=== PATIENT | female | born 2005 | race Caucasian/White ===

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

== ENCOUNTER 2024-03-28 09:05 | Emergency (ER) | payer OTHER, SELFPAY ==
[2024-03-28 09:17] VITALS: BP 115/70; PULSE 73; RESP 16; TEMP 36.7; O2SAT 100
[2024-03-28 09:39] LABS: EDSTREPNEGPOS1 Negative (Negative)
--- NOTE | 2024-03-28 10:03 | ED.URI ---
HPI - URI/Sore Throat General Chief Complaint: Upper Respiratory Infection Stated Complaint: Sore Throat Time Seen by Provider: 03/28/24 09:30 Source: patient Mode of arrival: ambulatory Limitations: no limitations History of Present Illness HPI Narrative: 19 yo F presents with c/o sore throat for 2 days, worse to L side. Afebrile. hx of tonisillar abscess but states doesn't feel like it did when she had abscess . Reports hx of strep with negative strep tests.Denies difficulty swallowing. All systems reviewed and negative except as noted above. Related Data Allergies Allergy/AdvReac Type Severity Reaction Status Date / Time No Known Allergies Allergy Verified 03/14/22 09:56 Review of Systems Review of Systems: CONSTITUTIONAL: Denies fever, chills, or sweats. EYES: Denies visual changes, redness, or discharge. ENT: Denies rhinorrhea, congestion . Reports sore throat. Denies otalgia. CARDIOVASCULAR: Denies chest pain, palpitations, or edema. RESPIRATORY: Denies cough or dyspnea. GASTROINTESTINAL: Denies abdominal pain, nausea, vomiting, or diarrhea. GENITOURINARY: Denies dysuria or hematuria. SKIN: Denies rash or itching. MUSCULOSKELETAL: Denies back pain, joint pain, or myalgia. NEUROLOGIC: Denies headache, numbness, or weakness. PSYCHIATRIC: Denies anxiety or depression. All other systems reviewed are negative, except as documented in HPI. PMFSH Past Medical History Medical History No active medical problems Family History Family History Grandparent Hypertension Social History Social History Smoking status: Never smoker Alcohol intake: never Gender identity (if verbalized by the patient): Female Comments At time of signature, agree with nursing past medical, surgical, social and family history. There is no relevant family history pertinent to the presenting complaint. Exam Narrative: GENERAL: This is a well-nourished, well-developed patient, in no apparent distress. HEAD: normocephalic, atraumatic. EYES: PERRL. Sclera clear/white. Vision is grossly intact. EARS: External ears normal, auditory canals clear and without drainage, TMs normal without perforation. Hearing grossly intact. NOSE: External nose normal with no obvious nasal discharge, nares without redness, no rhinorrhea. THROAT: Mucous membranes moist, erythematous, tonsils 2+ bilaterally. No exudates or tonsil stones noted. no unilateral tonsillar swelling concerning for tonsillar abscess. NECK: Neck supple, non-tender with Anterior cervical lymphadenopathy bilaterally. no masses or thyromegaly. CARDIOVASCULAR: Regular rate and rhythm without murmurs, gallops, or rubs. RESPIRATORY: Clear to auscultation. Breath sounds equal bilaterally. No wheezes, rales, or rhonchi. SKIN: warm, Dry, intact with no suspicious lesions or rash, good texture and turgor. NEURO: awake, alert, and oriented to person, place and time. There were no obvious focal neurologic abnormalities. EXTREMITIES: No joint tenderness, effusion, or edema noted. Course Course Level of Care: Express Care Visit Vital Signs Vital signs: Vital Signs Temperature 36.7 C 03/28/24 09:17 Pulse Rate 73 03/28/24 09:17 Respiratory Rate 16 03/28/24 09:17 Blood Pressure 115/70 03/28/24 09:17 Pulse Oximetry 100 03/28/24 09:17 Oxygen Delivery Room Air 03/28/24 09:17 Temperature 36.7 C 03/28/24 09:17 Pulse Rate 73 03/28/24 09:17 Respiratory Rate 16 03/28/24 09:17 Blood Pressure 115/70 03/28/24 09:17 Pulse Oximetry 100 03/28/24 09:17 Oxygen Delivery Room Air 03/28/24 09:17 reviewed MDM - URI/Sore Throat MDM Narrative Medical decision making narrative: mono and strep test negative. Strep culture ordered. Will treat patient with antibiotic due to exam findings and patient's symptoms. Patient well-appearing, nontoxic. Patient is aware of diagnosis, understands and agrees to treatment plan. Anticipatory guidance given. Patient agrees to follow-up as directed and is aware of reasons to seek care at the emergency department. Portions of this record may have been created with voice recognition software Lab Data Labs: Lab Results 03/28/24 Range/Units 09:37 POC Grp A Strep Screen Negative (Negative) Discharge Plan Discharge Clinical Impression: Acute tonsillitis Patient Disposition: Home, Self-Care Condition: Stable Instructions: Antibiotic Form, Tonsillitis (ED) Additional Instructions: Your strep and mono test were negative today. A strep culture was ordered and results will take 24-48 hours. I am prescribing an antibiotic today due to your symptoms and exam findings. Take antibiotic as prescribed until gone. Change toothbrush after taking antibiotic for 24 hours. Take ibuprofen or Tylenol every 6-8 hours as needed for pain and fever. Follow-up with your primary care physician if symptoms are not improving. For any worsening of symptoms go to the ER. Patient Language: [place] Prescriptions: New amoxicillin 875 mg tablet 875 mg PO Q12H 10 Days Qty: 20 0RF methylprednisolone [Medrol (Michael)] 4 mg tablets,dose pack See Rx Instructions PO .COMPLEX Qty: 21 0RF Rx Instructions: orally per package directions Follow-up/Referrals: PHYSICIAN NOT ON STAFF,NONSTAFF [Primary Care Provider] - Time of Disposition: 10:00
[2024-03-28 10:05] LABS: EDMONONEGPOS Negative (Negative)
--- OUTSIDE RECORDS SUMMARY | 2024-04-04 08:33 | XMS_ITS | Encounter Summary ---
Author Organization [facility] Address [address] [facility] [place] [address] Care Team Providers Care Rehab/Pre Vocational Counselor Name Role Phone Vernell Espinoza MD Unavailable Elpidio Zarate MD Primary Care Provider [phone] Reason for Visit * Reason Comments Evaluation tonsil abcess Encounter Details Date Type Department Care Team (Latest Contact Info) Description 09/15/2018 2:13 PM CDT - 09/15/2018 11:59 PM CDT Hospital Encounter [facility] Pediatrics - ENT [address] [facility] [place] [address] Dinah Mann MD Discharge Disposition: Home or Self Care Social History Tobacco Use Types Packs/Day Years Used Date Smoking Tobacco: Never Smokeless Tobacco: Never Sex and Gender Information Value Date Recorded Sex Assigned at Not on file Gender Identity Not on file Sexual Orientation Not on file documented as of this encounter Last Filed Vital Signs Vital Sign Reading Time Taken Comments Blood Pressure - - Pulse - - Temperature - - Respiratory Rate - - Oxygen Saturation - - Inhaled Oxygen Concentration - - Weight 57.4 kg (126 lb 8.7 oz) 09/15/2018 2:18 P M CDT Height 160 cm (5' 2.99 ) 09/15/2018 2:18 PM CDT Body Mass Index 22.42 09/15/2018 2:18 PM CDT Body Mass Index Percentile 72.91% 09/15/2018 2:1 8 PM CDT Growth Chart: [facility] (Girls, 2- 20 Years) documented in this encounter Medications at Time of Discharge Medication Sig Dispensed Refills Start Date End Date amoxicillin-clavulanate (AUGMENTIN) 875-125 MG tablet 09/08/2018 fluticasone propionate (FLONASE) 50 MCG/ACT nasal spray Elida 2 sprays into each nostril once daily for 30 days 1 bottles 5 09/15/2018 10/15/2018 documented as of this encounter Progress Notes * Dinah Mann MD - 09/15/2018 2:24 PM CDT ENT Clinic Note 09/15/2018 Patient name: Aviva Alvarez Date of : 2005 Chief Complaint Patient presents with ??? Evaluation tonsil abcess History of Present Illness: Aviva is a 13 year old 7 month old female here with her mother referred for evaluation of her tonsils. She developed left throat pain approximately 1 week ago and had a peritonsillar abscess drained at [facility]. Two of attempts at drainage were reportedly required. She was treated with amoxicillin postoperatively, her pain has resolved and she is feeling at her baseline. This was her first peritonsillar abscess. She had recurrent streptococcal tonsillitis several years ago but none recently. There is no family history of bleeding disorders. She does snore without witnessed sleep apnea. Another concern today is regarding her nasal airway. She has a hyponasal voice for the past 2 years. There is a strong family history of nasal allergies and sinus problems. She has mild chronic bilateral nasal obstruction. Allergies: Review of patient's allergies indicates no known allergies. Medications: Current Outpatient Prescriptions: ??? amoxicillin-clavulanate (AUGMENTIN) 875-125 MG tablet, , Disp: , Rfl: Past Medical History: Diagnosis Date ??? Acute serous otitis media 06/03/08 ??? Congenital preauricular sinus or fistula ??? FTND (full term normal delivery) 37 weeks, normal delivery, 4lbs 14oz ??? Rash 08/31/04 ??? Routine or child health check 07/21/04,04/28/04,01/19/05,01/31/06,03/03/07,06/03/08 ??? Streptococcal sore throat 10/20/07 History: 37 week was normal. Hospitalizations: No [place] hearing screen: passed Surgical History: Past Surgical History: Procedure Laterality Date ? ? VA EXCISION OF BENIGN LESION > 1.25 CM preauricular fistula removal age 1-2 Immunizations: are up to date Growth and development: Age appropriate: yes Receiving additional services: no Family history: Hearing loss: No. Surgical or anesthesia complications No Bleeding problems: no Social history: Here with mother. Exposure to smoking: No. Aviva attends school. Review of systems: Constitutional: child is weight appropriate Ears, Nose, Mouth, Throat: does not have hearing loss. has had tonsillitis or strep throat; has nothad frequent URI's Cardiovascular: does not have heart disease Respiratory: does not have asthma or wheezing Integumentary: does not have rash or eczema Neurological: does not have seizures Endocrine: does not have a history of thyroid problems Hematologic: does not have easy bleeding or bruising. Gastrointestinal: does not have reflux disease or GI illness Psychiatric: does not have ADHD or depression Allergy/Immunology: does not have known environmental or food allergy. does not have immunodeficiency Physical Exam: Height: 160 cm (5' 2.99 ) Weight: 57.4 kg (126 lb 8.7 oz) Body mass index is 22.42 kg/(m^2). Estimated body mass index is 22.42 kg/(m^2) as calculated from the following: Height as of this encounter: 1.6 m (5' 2.99 ). Weight as of this encounter: 57.4 kg (126 lb 8.7 oz). Constitutional: no retractions or cyanosis Head and Face: no lesions or masses; facies symmetric Eyes: normal ocular motion with gaze alignment Ears: Inspection: normal pinnae shape and position, scar at left helical root Otoscopy: External canal: normal bilaterally Tympanic membrane: Right ear: normal appearance and landmarks Left ear: normal appearance and landmarks Nasal: normal external nose, edematous mucous membranes with hypertrophic inferior turbinates, septum straight Oral Cavity: moist mucous membranes; normal uvula, palate and tongue size Throat: tonsils 2+, mucosa intact over scar at left anterior tonsillar pillar, mild tonsil asymmetry with left closer to midline relative to right. Neck: supple without tenderness or crepitus; no palpable adenopathy Cranial Nerve Exam: grossly intact; CN VII symmetric Respiration: unlabored breathing Skin: skin healthy ASSESSMENT: 13 year old 7 month old female with left peritonsillar abscess, healing well after incision and drainage 1 week ago. Also with nasal obstruction, hyponasal voice, inferior turbinate hypertrophy, likely allergic rhinitis. PLAN: Monitor throat clinically anticipating a low likelihood of recurrence. We reviewed conventional indications for tonsillectomy including obstructive sleep apnea, [place] criteria for recurrent streptococcal tonsillitis, and more than 1 peritonsillar abscess. Begin trial of topical nasal steroids. Follow-up in 3 months to assess treatment response. If nasal obstruction persists I would consider fiberoptic nasal endoscopy. Dinah Mann MD documented in this encounter Plan of Treatment Not on file documented as of this encounter Visit Diagnoses Diagnosis Peritonsillar abscess- Primary Nasal obstruction Other diseases of nasal cavity and sinuses Nasal turbinate hypertrophy Hypertrophy of nasal turbinates Hyponasal speech Hyponasality documented in this encounter Care Teams Rehab/Pre Vocational Counselor Relationship Specialty Start Date End Date Vernell Espinoza MD PCP - Pediatrics 02/10/09 Elpidio Zarate MD [address] [place] [phone] PCP - General Family Medicine 09/15/18 documented as of this encounter
--- OUTSIDE RECORDS SUMMARY | 2024-04-04 08:33 | XMS_ITS | Encounter Summary ---
Author Organization [facility] Address [address] [place] [address] Care Team Providers Care Pump Operator Byproducts Name Role Phone Octavio Simeon MD Unavailable Octavio Simeon MD Primary Care Provider [phone] Reason for Visit * Reason Comments Sore Throat since yesterday Cough since yesterday Fever temps 99-102 since y esterday Encounter Details Date Type Department Care Team (Late st Contact Info) Description 03/04/2013 10:15 AM MACHINE TENDER Office Visit [facility] - Pediatrics [address] [place] [phone] Octavio Simeon MD [address] [place] [phone] Acute pharyngitis (Primary Dx) Social History Tobacco Use Types Packs/Day Years Used Date Smoking Tobacco: Never Assessed Sex and Gender Information Value Date Recorded Sex Assigned at Not on file Gender Identity Not on file Sexual Orientation Not on file documented as of this encounter Last Filed Vital Signs Vital Sign Reading Time Taken Comments Blood Pressure - - Pulse - - Temperature 37 ??C (98.6 ??F) 03/04/2013 10:01 AM MACHINE TENDER Respiratory Rate - - Oxygen Saturation - - Inhaled Oxygen Concentration - - Weight 41.7 kg (92 lb) 03/04/2013 10:01 AM MACHINE TENDER Height - - Body Mass Index - - documented in this encounter Patient Instructions * Patient Instructions* Octavio Simeon MD - 03/04/2013 10:15 AM MACHINE TENDER Aviva Alvarez most likely has viral sore throat, she tested negative for strep test here in the office, we have send off a throat culture which will be back in 3 days. We will call you with the results. In the mean while, if your child is older than 4 years, give her lozenges, and have her do salt andwater gargles for pain relief. For younger children cold liquids and ice cream numbs the pain and helps them stay hydrated. Use tylenol per dose chart for pain and fever as needed every four hours. Many prescription and over the counter medicines contain Tylenol (acetaminophen) and Advil( ibuprofen) Do not use/give more than one Tylenol or Advil containing product at a time. INE TENDER documented in this encounter Progress Notes * Octavio Simeon MD - 03/07/2013 10:18 AM CSTQuick Note: Please call mom and let know I called in amox, culture showed non grp A strep infection. INE TENDER * Octavio Simeon MD - 03/04/2013 10:01 AM CST Aviva Alvarez is a 8 y.o. female accompanied to office today for evaluation of sore throat. Father says pt has cough, headache, upset stomach, sore throat since yesterday. Temps 99-102.0. Last dose of motrin given at 0300 this am. Pt denies nasal sx. OBJECTIVE: Temp 98.6 ??F (Temporal Artery) Wt 41.731 kg (92 lb) General appearance: alert, well appearing, and in no distress. Ears: bilateral TM's and external ear canals normal Nose: normal and patent, no erythema, discharge or polyps Oropharynx: erythematous and mucous membranes moist, pharynx normal without lesions Neck: supple, no significant adenopathy Lungs: clear to auscultation, no wheezes, rales or rhonchi, symmetric air entry Heart - regular rate and rhythm, normal S1 and S2, no murmurs ASSESSMENT: Pharyngitis PLAN: Tylenol prn Throat culture sent Oral hydration INE TENDER documented in this encounter Miscellaneous Notes * Addendum Note - Octavio Simeon MD - 03/07/2013 10:17 AM CSTAddended by: OCTAVIO SIMEON on: 03/07/2013 10:17 AM Modules accepted: Orders INE TENDER documented in this encounter Plan of Treatment Not on file documented as of this encounter Procedures Procedure Name Priority Date/Time Associated Diagnosis Comments CULTURE STREP GROUP A Routine 03/04/2013 10:26 AM MACHINE TENDER Acute pharyngitis STREP A SCREEN - POINT OF CARE (AMB) Routine 03/04/2013 10:25 AM MACHINE TENDER Acute pharyngitis documented in this encounter Results * CULTURE STREP GROUP A (03/04/2013 10:26 AM MACHINE TENDER) Beta-Strep Culture, Group A Only [facility] ACCOUNT BILL Comment: Beta-hemolytic colonies, not group A Streptococcus isolated. Penicillin and ampicillin are drugs of choice for treatment of beta-hemolytic streptococcal infections. Susceptibility testing of penicillins and other beta-lactam agents approved by the FDA for treatment of beta-hemolytic streptococcal infections need not be performed routinely because nonsusceptible isolates are extremely rare in any beta-hemolytic streptococcus and have not been reported for Streptococcus pyogenes (group A). (CLSI 2011) Miscellaneous samples (specimen) ENTIRE THROAT (SURFACE REGION OF NECK) / Unknown 03/04/2013 10:26 AM MACHINE TENDER 03/04/2013 8:44 PM MACHINE TENDER Narrative Resulting Agency Comment [facility] [address] ??[facility] [phone] Octavio Simeon MD LAB - MICROBIOLOGY O RDERABLES [facility] ACCOUNT BILL * STREP A SCREEN - POINT OF CARE (AMB) (03/04/2013 10:25 AM MACHINE TENDER) Strep A Rapid POCT Negative Negative Strep A Internal Control NEGATIVE - POSITIVE Throat swab (specimen) ENTIRE THROAT (SURFACE REGION OF NECK) / Unknown Octavio Simeon MD LAB - POINT OF CARE ORDERABLES documented in this encounter Visit Diagnoses Diagnosis Acute pharyngitis- Primary documented in this encounter Care Teams Pump Operator Byproducts Relationship Specialty Start Date End Date Octavio Simeon MD PCP - Pediatrics 02/10/09 Octavio Simeon MD [address] [place] [phone] PCP - General 07/04/09 09/14/18 documented as of this encounter
--- OUTSIDE RECORDS SUMMARY | 2024-04-04 08:33 | XMS_ITS | Clinical Summary ---
Author Organization [facility] Address [address] [facility] [place] [address] Care Team Providers Care Print Washer Name Role Phone Vernell Espinoza MD Unavailable Elpidio Zarate MD Primary Care Provider [phone] Source Comments [facility],non-owned Affiliates and Associated Physician Practices is amultiple site organization consisting of ambulatory clinics and hospital sitesin [place], [place], [place] and [place]. This disclosure is being madepursuant to the Care Everywhere program and may not contain all information available regarding this patient. Last updated 17.[facility] Allergies No known active allergies Medications * Be aware that medications may not be up to date on this document. Alwaysverify current medications with the patient. 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 Family history of other eye disorders 05/15/2010 Immunizations Name Administration Dates Next Due DTaP VACCINE IM (6wk-6yrs) 06/03/2008,,2003,2003,03/15 HEP A PEDS 2 DOSE 06/03/2008,03/03/2007 HEP B VACCINE, PED/ADOL 2003,2003, HIB BOOSTER 04/28/2004,2003,2003 ,2003 INFLUENZA 01/19/2005 MMR 03/03/2007,01/20/2004 PNEUMOCOCCAL CONJ, PEDS 01/20/2004,2003,,2003 POLIO IPV 06/03/2008,2003,2003 ,2003 PPD 01/20/2004 VARICELLA 03/03/2007,04/28/2004 Family History Medical History Relation Name Comments Strabismus Father Glasses at a yo melissa age Strabismus Other Chetan Maternal great grandfather Amblyopia Neg Hx Relation Name Status Comments Father Other Chetan Social History Tobacco Use Types Packs/Day Years Used Date Smoking Tobacco: Never Smokeless Tobacco: Never Sex and Gender Information Value Date Recorded Sex Assigned at Not on file Gender Identity Not on file Sexual Orientation Not on file Last Filed Vital Signs Vital Sign Reading Time Taken Comments Blood Pressure - - Pulse - - Temperature 37 ??C (98.6 ??F) 03/04/2013 10:01 AM VENEER SLICING MACHINE OPERATOR Respiratory Rate - - Oxygen Saturation - - Inhaled Oxygen Concentration - - Weight 57.4 kg (126 lb 8.7 oz) 09/15/2018 2:18 P M CDT Height 160 cm (5' 2.99 ) 09/15/2018 2:18 PM CDT Body Mass Index 22.42 09/15/2018 2:18 PM CDT Plan of Treatment Health Maintenance Due Date Last Done Comments PAP SMEAR 2003 DTAP/TDAP/TD VACCINES (6 - Tdap) 2014 06/03/2008, 07/21/2004, 2003, Additional history exists HIV SCREENING 2018 HPV VACCINE (1 - 3-dose series) 2018 CHLAMYDIA/GONORRHEA SCREENING 2019 HEPATITIS C SCREENING 01/13/2021 DEPRESSION SCREENING 04/01/2023 COVID-19 VACCINE (1 - 2024-25 season) 2023 INFLUENZA VACCINE (#1) 2023 01/19/2005 ZOSTER VACCINE (1 of 2) 2053 HEPATITIS B VACCINE Completed 2003, 2003, 2003 PNEUMOCOCCAL VACCINE Completed 01/20/2004, 2003, 2003, Additional history exists HIB VACCINE Completed 04/28/2004, 09/2003, 2003, Additional history exists MENINGOCOCCAL VACCINE Aged Out No chitra servando eligible based on patient's age to complete this topic Care Teams Print Washer Relationship Specialty Start Date End Date Vernell Espinoza MD PCP - Pediatrics 02/10/09 Elpidio Zarate MD [address] [place] [phone] PCP - General Family Medicine 09/15/18
--- OUTSIDE RECORDS SUMMARY | 2024-04-04 08:33 | XMS_ITS | Encounter Summary ---
Author Organization [facility] Address [address] [place] [address] Care Team Providers Care Powder Cutting Operator Name Role Phone Vernell Espinoza MD Unavailable Vernell Espinoza MD Primary Care Provider [phone] Reason for Visit * Reason Onset Date Comments Results 03/07/2013 throat culture Encounter Details Date Type Department Care Team (Late st Contact Info) Description 03/07/2013 Telephone [facility] - Pediatrics [address] [place] [address] [address] [place] [phone] Vernell Espinoza MD [address] [place] [phone] Results (throat culture) Social History Tobacco Use Types Packs/Day Years Used Date Smoking Tobacco: Never Assessed Sex and Gender Information Value Date Recorded Sex Assigned at Not on file Gender Identity Not on file Sexual Orientation Not on file documented as of this encounter Miscellaneous Notes * Telephone Encounter - Alondra Tong RN - 03/07/2013 10:30 AM CST Spoke with mom about Aviva's positive throat culture and let her know that Dr. Espinoza called in Amoxicillin for Aviva. GER VOICE documented in this encounter Plan of Treatment Not on file documented as of this encounter Visit Diagnoses Not on filedocumented in this encounter Care Teams Powder Cutting Operator Relationship Specialty Start Date End Date Vernell Espinoza MD PCP - Pediatrics 02/10/09 Vernell Espinoza MD [address] [place] [address] PCP - General 07/04/09 09/14/18 documented as of this encounter
--- OUTSIDE RECORDS SUMMARY | 2024-04-04 08:33 | XMS_ITS | Referral Summary ---
Author Organization [facility] Address [address] [place] [address] Care Team Providers Care Sales Product Specialist Name Role Phone Vernell Espinoza MD Unavailable Elpidio Zarate MD Primary Care Provider [phone] Source Comments [facility],non-owned Affiliates and Associated Physician Practices is amultiple site organization consisting of ambulatory clinics and hospital sitesin [place], [place], [place] and [place]. This disclosure is being madepursuant to the Care Everywhere program and may not contain all information available regarding this patient. Last updated 17.[facility] Allergies No known active allergies Medications * [...] IPV 06/03/2008,2003,2003 ,2003 PPD 01/20/2004 VARICELLA 03/03/2007,04/28/2004 Social History Tobacco Use Types Packs/Day Years Used Date Smoking Tobacco: Never Smokeless Tobacco: Never Sex and Gender Information Value Date Recorded Sex Assigned at Not on file Gender Identity Not on file Sexual Orientation Not on file Last Filed Vital Signs Vital Sign Reading Time Taken Comments Blood Pressure - - Pulse - - Temperature 37 ??C (98.6 ??F) 03/04/2013 10:01 AM HEAD WRESTLING COACH Respiratory Rate - - Oxygen Saturation - - Inhaled Oxygen Concentration - - Weight 57.4 kg (126 lb 8.7 oz) 09/15/2018 2:18 P M CDT Height 160 cm (5' 2.99 ) 09/15/2018 2:18 PM CDT Body Mass Index 22.42 09/15/2018 2:18 PM CDT Plan of Treatment Not on file Care Teams Sales Product Specialist Relationship Specialty Start Date End Date Vernell Espinoza MD PCP - Pediatrics 02/10/09 Elpidio Zarate MD [address] [place] [phone] PCP - General Family Medicine 09/15/18
--- OUTSIDE RECORDS SUMMARY | 2024-04-04 08:33 | XMS_ITS | Patient Health Summary ---
Author Organization [facility] Address [address] [facility] [place] [address] Care Team Providers Care Mercerizer Machine Operator Name Role Phone Vernell Espinoza MD Unavailable Elpidio Zarate MD Primary Care Provider [phone] Note from [facility],non-owned Affiliates and Associated Physician Practices is amultiple site organization consisting of ambulatory clinics and hospital sitesin [place], [place], [place] and [place]. This disclosure is being madepursuant to the Care Everywhere program and may not contain all information available regarding this patient. Last updated 17.[facility] Allergies No known active allergies Medications * Be aware that medications may not be up to date on this document. Alwaysverify current medications with the patient. 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 Family history of other eye disorders 05/15/2010 Immunizations * DTaP VACCINE IM (6wk-6yrs)(Given 06/03/2008, 07/21/2004, 2003, 2003, 2003) * HEP A PEDS 2 DOSE(Given 06/03/2008, 03/03/2007) * HEP B VACCINE, PED/ADOL(Given 2003, 2003, 2003) * HIB BOOSTER(Given 04/28/2004, 2003, 2003, 2003) * INFLUENZA(Given 01/19/2005) * MMR(Given 03/03/2007, 01/20/2004) * PNEUMOCOCCAL CONJ, PEDS(Given 01/20/2004, 2003, 2003, 2003) * POLIO IPV(Given 06/03/2008, 2003, 2003, 2003) * PPD(Given 01/20/2004) * VARICELLA(Given 03/03/2007, 04/28/2004) Social History Tobacco Use Types Packs/Day Years Used Date Smoking Tobacco: Never Smokeless Tobacco: Never Sex and Gender Information Value Date Recorded Sex Assigned at Not on file Gender Identity Not on file Sexual Orientation Not on file Last Filed Vital Signs Vital Sign Reading Time Taken Comments Blood Pressure - - Pulse - - Temperature 37 ??C (98.6 ??F) 03/04/2013 10:01 AM WINDOW CUTTER Respiratory Rate - - Oxygen Saturation - - Inhaled Oxygen Concentration - - Weight 57.4 kg (126 lb 8.7 oz) 09/15/2018 2:18 P M CDT Height 160 cm (5' 2.99 ) 09/15/2018 2:18 PM CDT Body Mass Index 22.42 09/15/2018 2:18 PM CDT Procedures * CULTURE STREP GROUP A(Performed 03/04/2013) Performed for Acute pharyngitis * STREP A SCREEN - POINT OF CARE (AMB)(Performed 03/04/2013) Performed for Acute pharyngitis * STREP A SCREEN - POINT OF CARE (AMB)(Performed 01/05/2013) Performed for Acute pharyngitis * CULTURE STREP GROUP A(Performed 01/05/2013) Performed for Acute pharyngitis * CULTURE STREP GROUP A(Performed 03/01/2011) Performed for Pharyngitis, acute * STREP A SCREEN - POINT OF CARE (AMB)(Performed 03/01/2011) Performed for Fever presenting with conditions classified elsewhere, Sore throat * XR CHEST 2VW(Performed 03/01/2011) * CULTURE AEROBIC+GRAM STAIN(Performed 07/03/2010) Performed for Carrier or suspected carrier of streptococcus * STREP A SCREEN - POINT OF CARE (AMB)(Performed 07/03/2010) Performed for Carrier or suspected carrier of streptococcus * STREP A SCREEN - POINT OF CARE (AMB)(Performed 06/26/2010) Performed for Streptococcal sore throat * STREP A SCREEN - POINT OF CARE (AMB)(Performed 06/10/2010) Performed for Streptococcal sore throat * CULTURE AEROBIC+GRAM STAIN(Performed 09/29/2009) Performed for Acute Tonsillitis * STREP A SCREEN - POINT OF CARE (AMB)(Performed 09/29/2009) Performed for Acute Tonsillitis * CULTURE AEROBIC+GRAM STAIN(Performed 08/08/2009) Performed for Acute Pharyngitis * STREP A SCREEN - POINT OF CARE (AMB)(Performed 08/08/2009) Performed for Acute Pharyngitis * MINDY-MESSINA VIRUS ANTIBODY PANEL(Performed 07/28/2009) Performed for Acute Pharyngitis * MONONUCLEOSIS SCREEN(Performed 07/28/2009) Performed for Acute Pharyngitis * STREP A SCREEN - POINT OF CARE (AMB)(Performed 07/25/2009) Performed for Acute Pharyngitis * CULTURE AEROBIC+GRAM STAIN(Performed 07/25/2009) Performed for Acute Pharyngitis * STREP A SCREEN - POINT OF CARE (AMB)(Performed 06/14/2009) Performed for Streptococcal Sore Throat * STREP A SCREEN - POINT OF CARE (AMB)(Performed 06/02/2009) Performed for Streptococcal Sore Throat * CBC W AUTO DIFFERENTIAL W PLATELETS(Performed 04/15/2009) * COMPREHENSIVE METABOLIC PANEL(Performed 04/15/2009) * MONONUCLEOSIS SCREEN(Performed 04/15/2009) * LAB RESULTS ORDER(Performed 04/15/2009) * CULTURE BLOOD(Performed 04/15/2009) * STREP A SCREEN - POINT OF CARE (AMB)(Performed 04/14/2009) Performed for Sore Throat * GROSS + MICRO EXAM(Performed 07/13/2004) Results * CULTURE STREP GROUP A (03/04/2013 10:26 AM WINDOW CUTTER) Only the most recent of3 resultswithin the time period is included. Beta-Strep Culture, Group A Only [facility] ACCOUNT [...] OF NECK) / Unknown 03/04/2013 10:26 AM WINDOW CUTTER 03/04/2013 8:44 PM WINDOW CUTTER Narrative Resulting Agency Comment [facility] [address] ??[facility] [phone] Vernell Espinoza MD LAB - MICROBIOLOGY O RDERABLES [facility] ACCOUNT BILL * STREP A SCREEN - POINT OF CARE (AMB) (03/04/2013 10:25 AM WINDOW CUTTER) Only the most recent of12 resultswithin the time period is included. Pathologist [facility] Strep A Rapid POCT Negative Negative Strep A Internal Control NEGATIVE - POSITIVE Throat swab (specimen) ENTIRE THROAT (SURFACE REGION OF NECK) / Unknown Vernell Espinoza MD LAB - POINT OF CARE ORDERABLES * XR CHEST PA AND LATERAL (03/01/2011) Anatomical Region Laterality Modality Chest Other Rebecca Jean MD DIAGNOSTIC IMAGING O RDERABLES * CULTURE ROUTINE (07/03/2010 4:11 PM CDT) Only the most recent of4 resultswithin the time period is included. Aerobic Bacterial Culture Final report [facility] ACCOUNT BILL Result 1 [facility] ACCOUNT BILL Comment:Routine respiratory shady ENTIRE PHARYNX / Unknown 07/03/2010 4:11 PM CDT 07/03/2010 10:59 PM CDT Narrative Resulting Agency Comment [facility] [place] [address] ??[facility] [phone] Rebecca Jean MD LAB - MICROBIOLOGY Ericka KENDRICKERANAVEEN Performing Organization Address [facility]/ZIP Co de Phone Number [facility] ACCOUNT BILL * MONONUCLEOSIS SCREEN (07/28/2009 4:15 PM CDT) Only the most recent of2 resultswithin the time period is included. Mononucleosis Test Qualitative Negative Negative [facility] ACCOUNT BILL Comment: The sensitivity of Heterophile antibody testing is 80-90%. Mindy Messina IgM testing offers higher sensitivity. BLOOD SPECIMEN / Unknown 07/28/2009 4:15 PM CDT 07/28/2009 10:39 PM CDT Narrative Resulting Agency Comment [facility] [place] [address] ??[facility] [phone] Vernell Espinoza MD LAB - CHEMISTRY MARILUZ BELLA Performing Organization Address [facility] Co de Phone Number [facility] ACCOUNT BILL * (ABNORMAL) MINDY-BAR VIRUS PANEL (07/28/2009 4:15 PM CDT) Mindy-Messina Viral Capsid Antigen Antibody IgM <0.2 0.0 - 0.8 AI [facility] ACCOUNT BILL Comment: ?Negative ?<0.9 ?Equivocal ??0.9 - 1.0 ?Positive ?>1.0 Mindy-Messina Virus Early Antigen Antibody IgG 0.2 0.0 - 0.8 AI [facility] ACCOUNT BILL Comment: ?Negative ?<0.9 ?Equivocal ??0.9 - 1.0 ?Positive ?>1.0 Mindy-Messina Viral Capsid Antigen Antibody IgG >8.0(H) 0.0 - 0.8 AI [facility] ACCOUNT BILL Comment: ?Negative ?<0.9 ?Equivocal ??0.9 - 1.0 ?Positive ?>1.0 Mindy-Messina Virus Antibody IgG Nuclear Antigen >8.0(H) 0.0 - 0.8 AI [facility] ACCOUNT BILL Comment: ?Negative ?<0.9 ?Equivocal ??0.9 - 1.0 ?Positive ?>1.0 Interpretation [facility] ACCOUNT BILL Comment: ?EBV Interpretation Chart ? . ? Interpretation ? VCA-IgM ??EA-IgG ??VCA-IgG ??NA- ABS ? . ? Susceptible ? - ? - ?- ? - ? Acute Infection ? + ?+or- ?+ ? - ? Convalescent Phase ? +or- ?+or- ?+ ? + ? Chronic or Reactivated ?- ? + ?+ ?+or- ? Old Infection ? - ? - ? +or- ? + ?+ Antibody Present ?- Antibody Absent BLOOD SPECIMEN / Unknown 07/28/2009 4:15 PM CDT 07/28/2009 10:39 PM CDT Narrative Resulting Agency Comment [facility] [address] [facility] ??[facility] [phone] Vernell Espinoza MD LAB - CHEMISTRY MARILUZ BELLA Performing Organization Address [facility] Co de Phone Number [facility] ACCOUNT BILL * LAB RESULTS ORDER (04/15/2009) Rebecca Jean MD LAB - THERAPEUTIC DR SANTILLAN MONITORING ORDERABLES * CULTURE BLOOD (04/15/2009) Vernell Espinoza MD LAB - MICROBIOLOGY O RDERABLES Performing Organization Address [facility] de Phone Number [facility] ACCOUNT BILL * CBC W AUTO DIFFERENTIAL W PLATELETS (04/15/2009) BLOOD SPECIMEN / Unknown Vernell Espinoza MD LAB - HEMATOLOGY ORD ERABLES * COMPREHENSIVE METABOLIC PANEL (04/15/2009) BLOOD SPECIMEN / Unknown Vernell Espinoza MD LAB - CHEMISTRY MARILUZ BELLA Performing Organization Address [facility] Co de Phone Number [facility] ACCOUNT BILL * GROSS + MICRO EXAM (07/13/2004 8:50 AM CDT) Result CASE NUMBER [id number] [facility] LAB PATH REPORT Comment: ORDERING PHYSICIAN ??BEHZAD,LUDRES J SPECIMEN TYPE ?Preauricular Pit CLINICAL HISTORY ? 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 GROSS DESCRIPTION ? The specimen labeled with the patient's name and preauricular pit is received fresh for gross and microscopic examination and consists of a 0.4 x 0.2 x 0.2 cm fragment of pink-white skin and subcutaneous tissue. A 0.1 cm dimple is identified in the approximate center of the skin surface. ??The specimen is bisected and entirely submitted in cassette A . ??(CT/lw) MICROSCOPIC DESCRIPTION ? 1 H/E Sections show unremarkable hair-bearing skin and unremarkable subcutis overlying unremarkable skeletal muscle and unremarkable cartilage. (CF/dm) DIAGNOSIS ? 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 The performance characteristics of all immunohistochemical and indirect immunofluorescence stains (if any) cited in this report were determined by the Histopathology Laboratory of [facility] (immunohistochemistry) or the Histology Laboratory of [facility] (indirect immunofluorescence) in compliance with CLIA `88 regulations. ??Some of these tests rely on the use of analyte-specific reagents and are subject to specific labeling requirements by the FDA. ??Such tests were developed by the Histopathology Laboratory of [facility] or the Histology Laboratory of [facility] and have not been cleared or approved by the FDA. ??The FDA has determined that such clearance or approval is not necessary. ??These tests are used for clinical purposes and should not be regarded as investigational or for research. This case has been personally reviewed and interpreted by the attending (teaching) pathologist. Dance Artist ? Pita Mckeon RESIDENT IN PATHOLOG Blanca Sood M.D. PATHOLOGIST ?Brittany Aragon M.D. ELECTRONICALLY ALE BRITTANY ARAGON MISCELLANEOUS SAMPLES / Unknown 07/13/2004 8:50 AM CDT 07/13/2004 10:17 AM CDT Historical Provider LAB - PATHOLOGY/C YTOLOGY ORDERABLES [facility] LAB PATH REPORT Care Teams Mercerizer Machine Operator Relationship Specialty Start Date End Date Vernell Espinoza MD PCP - Pediatrics 02/10/09 Elpidio Zarate MD [address] [place] [phone] PCP - General Family Medicine 09/15/18
--- OUTSIDE RECORDS SUMMARY | 2024-04-04 08:34 | XMS_ITS | Encounter Summary ---
Author Organization [facility] Address [address] [place] [address] Care Team Providers Care Veneer Grader Name Role Phone Octavio Simeon MD Unavailable Octavio Simeon MD Primary Care Provider Encounter Details Date Type Department Care Team (Latest Contact Info) Description 07/04/2009 1:16 PM CDT - 07/04/2009 11:59 PM CDT Hospital Encounter [facility] Pediatrics - Ophthalmology [address] [place] [id number] Miguel Pina MD [address] [place] [address] Ophthalmology Discharge Disposition: Home or Self Care Social History Tobacco Use Types Packs/Day Years Used Date Smoking Tobacco: Never Assessed Sex and Gender Information Value Date Recorded Sex Assigned at Not on file Gender Identity Not on file Sexual Orientation Not on file documented as of this encounter Medications at Time of Discharge Medication Sig Dispensed Refills Start Date End Date amoxicillin (AMOXIL) 400 MG/5ML SUSR suspension Take 11 mL by mouth 2 times daily. 10 day supply 0 06/02/2009 05/15/2010 documented as of this encounter Progress Notes * Miguel Pina MD - 07/04/2009 12:00 AM CDT[facility] Pediatric Ophthalmology Dear Dr. Simeon, I had the opportunity to see your patient, Aviva Alvarez, in followup in the [facility] of [facility] on 07/04/09. Aviva is a 6-1/2-year-old girl with a history of poorly accommodative esotropia. 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 Ophthalmologic examination reveals a corrected visual acuity of 20/25 in each eye at distance and 20/20 in each eye at near. External, pupillary, and slit lamp examination is normal. Motility revealsfull ductions and versions and no strabismus with her material handler spectacle correction in place. She is currently wearing +375 +0.50 at 125 in the right eye, +3.50 +0.50 at 45 in the left eye. As I instructed her mother, she does not require any amblyopia at the present time. We will repeat the cycloplegic refraction in 6 months. She is to continue wearing her glasses on a material handler basis. After that, we will see Aviva back only on an annual basis. Thank you for allowing me to participate in the care of your patient. If I can provide any further information or assistance, please don't hesitate to contact me. Sincerely, Dictated By: MIGUEL PINA MD Electronically Signed 07/07/2009 10:41:48 CDT / JOB ID: [id number] cc: OCTAVIO SIMEON MD documented in this encounter Plan of Treatment Not on file documented as of this encounter Visit Diagnoses Not on filedocumented in this encounter Care Teams Veneer Grader Relationship Specialty Start Date End Date Octavio Simeon MD PCP - Pediatrics 02/10/09 Octavio Simeon MD [address] [place] [address] PCP - General 07/04/09 09/14/18 documented as of this encounter
--- OUTSIDE RECORDS SUMMARY | 2024-04-04 08:34 | XMS_ITS | Encounter Summary ---
Author Organization [facility] Address [address] [place] [address] Care Team Providers Care Corsage Maker Name Role Phone Vernell Espinoza MD Unavailable Vernell Espinoza MD Primary Care Provider [phone] Reason for Visit * Reason Onset Date Comments Follow-up 02/26/2011 Encounter Details Date Type Department Care Team (Late st Contact Info) Description 02/26/2011 Telephone [facility] Medical [facility] - Pediatrics [address] [place] [address] [place] [phone] Rebecca Jean MD [address] [place] [phone] Follow-up Social History Tobacco Use Types Packs/Day Years Used Date Smoking Tobacco: Never Assessed Sex and Gender Information Value Date Recorded Sex Assigned at Not on file Gender Identity Not on file Sexual Orientation Not on file documented as of this encounter Miscellaneous Notes * Telephone Encounter - Salome Urena RN - 02/28/2011 10:30 AM CST Talked to Mom to find out how pt is doing. Mom said that pt spiked 102 fever during the night last night while at Dad's house. Pt is with Grandma right now and is starting to warm up again. Encouraged Mom to have pt seen. Unfortunately, no one is able to bring in pt today. Appt made for tomorrow [id number]. APPLICATION TESTER * Telephone Encounter - Rebecca Jean MD - 02/27/2011 12:40 PM CST Agree. If her temp goes up, she may want to bring her in for possible strep swab. APPLICATION TESTER * Telephone Encounter - Sena Copeland RN - 02/27/2011 11:10 AM CST Spoke with mom. Vomiting from yesterday subsided. Has not vomited since last night.. C/o slight sore throat. Mom said low grade fever but stated temp running 99. Explained to mom that it is running normal viral course. Eat food that will soothe the throat. Call if continues or if new s/s develop. APPLICATION TESTER * Telephone Encounter - Sena Copeland RN - 02/26/2011 11:39 AM CST Spoke with mom. Started vomiting couple of hours ago. Still vomiting. Several times/hour. No fever.No diarrhea. Voiding normal. Unable to keep anything down. Advised her to not give food at this time. Keep fluids to sips only until able to tolerate. Pedialyte preferred. When able to tolerate food start with bland diet and advance as tolerated. Watch for s/s of dehydration. Vomiting should decrease and eventually stop. If continues or new s/s develop call office. Mom voices understanding. APPLICATION TESTER * Telephone Encounter - Fiorella Lerner MA - 02/26/2011 10:52 AM CST MOM IS CONCERNED THAT CHILD IS VOMITING FREQUENTLY. APPLICATION TESTER documented in this encounter Plan of Treatment Not on file documented as of this encounter Visit Diagnoses Not on filedocumented in this encounter Care Teams Corsage Maker Relationship Specialty Start Date End Date Vernell Espinoza MD PCP - Pediatrics 02/10/09 Vernell Espinoza MD [address] [place] [address] PCP - General 07/04/09 09/14/18 documented as of this encounter
--- OUTSIDE RECORDS SUMMARY | 2024-04-04 08:34 | XMS_ITS | Encounter Summary ---
Author Organization [facility] Address [address] [place] [address] Care Team Providers Care Location Analyst Name Role Phone Vernell Espinoza MD Unavailable Vernell Espinoza MD Primary Care Provider [phone] Reason for Visit * Reason Onset Date Comments Sore Throat 10/04/2009 Encounter Details Date Type Department Care Team (Late st Contact Info) Description 10/04/2009 Telephone [facility] Medical [facility] - Pediatrics [address] [place] [address] [address] [place] [phone] Vernell Espinoza MD [facility] [address] [place] [phone] Sore Throat Social History Tobacco Use Types Packs/Day Years Used Date Smoking Tobacco: Never Assessed Sex and Gender Information Value Date Recorded Sex Assigned at Not on file Gender Identity Not on file Sexual Orientation Not on file documented as of this encounter Miscellaneous Notes * Telephone Encounter - Salome Ambrocio RN - 10/04/2009 4:57 PM CDT Attempted to reach Mom by phone to report Dr Espinoza's response to her concerns. No answer. Message left for Mom to call office. * Telephone Encounter - Vernell Espinoza MD - 10/04/2009 1:40 PM CDT She had three confirmed strep this year. Last time she was negative, with five strep we refer for tonsil removal * Telephone Encounter - Cory Diaz - 10/04/2009 11:38 AM CDT Mom called and wanted to know if she should be referred to ENT for all her throat problems since April. Please let mom know in case she needs to schedule an appt with them still this summer secondary school special ed teacher starts again. documented in this encounter Plan of Treatment Not on file documented as of this encounter Visit Diagnoses Not on filedocumented in this encounter Care Teams Location Analyst Relationship Specialty Start Date End Date Vernell Espinoza MD PCP - Pediatrics 02/10/09 Vernell Espinoza MD [address] [place] [address] PCP - General 07/04/09 09/14/18 documented as of this encounter
--- OUTSIDE RECORDS SUMMARY | 2024-04-04 08:34 | XMS_ITS | Encounter Summary ---
Author Organization [facility] Address [address] [place] [address] Care Team Providers Care Filling Station Equipment Mechanic Name Role Phone Vernell Espinoza MD Unavailable Vernell Espinoza MD Primary Care Provider Reason for Visit * Reason Onset Date Comments Vomiting 03/15/2011 Diarrhea 03/15/2011 Encounter Details Date Type Department Care Team (Late st Contact Info) Description 03/15/2011 Telephone [facility] Group - Pediatrics [address] [place] [address] [address] [place] [phone] Vernell Espinoza MD [address] [place] [address] Vomiting; Diarrhea Social History Tobacco Use Types Packs/Day Years Used Date Smoking Tobacco: Never Assessed Sex and Gender Information Value Date Recorded Sex Assigned at Not on file Gender Identity Not on file Sexual Orientation Not on file documented as of this encounter Miscellaneous Notes * Telephone Encounter - Sheyla Solomon RN - 03/15/2011 2:41 PM CST Mother states she vomited yesterday and has diarrhea today. Finished Augmentin on Saturday. Instructed her to give BRAT diet, increase fluids as tolerated, and call office if no improvement. DER MACHINE KNIFE SETTER * Telephone Encounter - Robinson Felder - 03/15/2011 1:55 PM CST Aviva finished Augmentin Sat and now has vomiting and diarrhea. Vomiting started yesterday and diarrhea early this morning. DER MACHINE KNIFE SETTER documented in this encounter Plan of Treatment Not on file documented as of this encounter Visit Diagnoses Not on filedocumented in this encounter Care Teams Filling Station Equipment Mechanic Relationship Specialty Start Date End Date Vernell Espinoza MD PCP - Pediatrics 02/10/09 Vernell Espinoza MD [address] [place] [address] PCP - General 07/04/09 09/14/18 documented as of this encounter
--- OUTSIDE RECORDS SUMMARY | 2024-04-04 08:34 | XMS_ITS | Encounter Summary ---
Author Organization [facility] Address [address] [facility] [place] [address] Care Team Providers Care Assistant To The President Name Role Phone Vernell Espinoza MD Unavailable Reason for Visit * Reason Comments Fever past 3 days, intermi ttent Swelling Gland past 6 days Chest Pain on right side when walks , 0 cough Encounter Details Date Type Department Care Team (Late st Contact Info) Description 04/14/2009 2:45 PM MARKETING WRITER Office Visit [facility] - Pediatrics [address] [place] [address] [place] [phone] Rebecca Jean MD [address] [place] [address] [phone] Fever Presenting with Conditions Classified Elsewhere (Primary Dx); Sore Throat; Lymphadenopathy - Swelling Social History Tobacco Use Types Packs/Day Years Used Date Smoking Tobacco: Never Assessed Sex and Gender Information Value Date Recorded Sex Assigned at Not on file Gender Identity Not on file Sexual Orientation Not on file documented as of this encounter Last Filed Vital Signs Vital Sign Reading Time Taken Comments Blood Pressure - - Pulse - - Temperature 39.2 ??C (102.5 ??F) 04/14/2009 2:[address] Respiratory Rate - - Oxygen Saturation - - Inhaled Oxygen Concentration - - Weight 22.7 kg (50 lb) 04/14/2009 2:53 PM MARKETING WRITER Height - - Body Mass Index - - documented in this encounter Progress Notes * Rebecca Jean MD - 04/14/2009 3:32 PM CST Aviva Alvarez. 4 y.o., female, here for evaluation of sore throat, fever, swollen gland. Symptoms started 3-4 days ago. Was seen here 2 days ago, rapid strep neg. Mom and gma unsure if lymph node is larger in size from other day Fever: Yes, Tmax 102.5 Runny Nose: Yes, Congestion: No Cough: No, Headache: Yes Abd Pain: No Rash: No Sleep: fair Appetite: fair Fluids: good Sick contacts with Strep: No Medications: augmentin PE: Temp (Src) 102.5 ??F (Oral) Wt 22.68 kg (50 lb) Alert NAD SHEENT: Skin: no observable rash Ears: Left: Normal Right: Normal Throat:injected Tonsils: moderately enlarged Neck: supple, left, anterior cervical lymph node, tender (size of a large grape) Heart: Normal PMI. regular rate and rhythm, normal S1, S2, no murmurs or gallops. Lungs: Respiratory effort normal, clear to auscultation, normal breath sounds bilaterally Rapid Strep: negative Impression: 1.Viral Pharyngitis 2. Fever 3. lymphadenopathy Plan: Rx change to clindamycin Fever control and encourage fluids. Follow up prn.--monitor size of lymph node, warmth, redness. ETING WRITER documented in this encounter Plan of Treatment Not on file documented as of this encounter Procedures Procedure Name Priority Date/Time Associated Diagnosis Comments STREP A SCREEN - POINT OF CARE (AMB) Routine 04/14/2009 2:00 PM MARKETING WRITER Sore Throat documented in this encounter Results * STREP A SCREEN - POINT OF CARE (AMB) (04/14/2009 2:00 PM MARKETING WRITER) Strep A Rapid POCT negative NEGATIVE - POSITIVE Strep A Internal Control NEGATIVE - POSITIVE ENTIRE THROAT (SURFACE REGION OF NECK) / Unknown Rebecca Jean MD LAB - POINT OF CARE ORDERABLES documented in this encounter Visit Diagnoses Diagnosis Fever presenting with conditions classified elsewhere- Primary Sore throat Acute pharyngitis Lymphadenopathy - swelling Enlargement of lymph nodes documented in this encounter Care Teams Assistant To The President Relationship Specialty Start Date End Date Vernell Espinoza MD PCP - Pediatrics 02/10/09 documented as of this encounter
--- OUTSIDE RECORDS SUMMARY | 2024-04-04 08:34 | XMS_ITS | Encounter Summary ---
Author Organization [facility] Address [address] [facility] [place] [address] Care Team Providers Care Electronic Imaging System Operator Name Role Phone Vernell Espinoza MD Unavailable Vernell Espinoza MD Primary Care Provider [phone] Reason for Visit * Reason Comments Hearing Problem failed hearing test at school; Encounter Details Date Type Department Care Team (Late st Contact Info) Description 03/14/2012 3:40 PM SHREDDING SPECIALIST Office Visit [facility] Medical Group - Pediatrics [address] [place] [phone] Vernell Espinoza MD [address] [place] [address] Acute serous otitis media (Primary Dx); Failed school hearing screen Social History Tobacco Use Types Packs/Day Years Used Date Smoking Tobacco: Never Assessed Sex and Gender Information Value Date Recorded Sex Assigned at Not on file Gender Identity Not on file Sexual Orientation Not on file documented as of this encounter Last Filed Vital Signs Vital Sign Reading Time Taken Comments Blood Pressure - - Pulse - - Temperature 36.8 ??C (98.3 ??F) 03/14/2012 3:55 PM CS T Respiratory Rate - - Oxygen Saturation - - Inhaled Oxygen Concentration - - Weight 36 kg (79 lb 6.4 oz) 03/14/2012 3:[address] Height - - Body Mass Index - - documented in this encounter Progress Notes * Vernell Espinoza MD - 03/14/2012 3:56 PM CST SUBJECTIVE: Aviva Alvarez is a 7 y.o. female here with her mother for a follow up of her hearingscreen. Failed hearing test at school; Need to sign form for school. Denies ear pain; mother states she hashad decreased hearing for the past 4-5 months. No fever, no uri, failed screen in both ears. OBJECTIVE: Temp(Src) 98.3 ??F (Temporal) Wt 79 lb 6.4 oz (36.016 kg) General appearance: alert, well appearing, and in no distress. Ears: right clear clear fluid behind tm, left tm dull Nose: normal and patent, no erythema, discharge or polyps Oropharynx: mucous membranes moist, pharynx normal without lesions Neck: supple, no significant adenopathy Lungs: clear to auscultation, no wheezes, rales or rhonchi, symmetric air entry Heart - regular rate and rhythm, normal S1 and S2, no murmurs ASSESSMENT: serous otitis media PLAN: Follow up in 6 weeks DDING SPECIALIST documented in this encounter Plan of Treatment Not on file documented as of this encounter Visit Diagnoses Diagnosis Acute serous otitis media- Primary Failed school hearing screen Nonspecific abnormal auditory function studies documented in this encounter Care Teams Electronic Imaging System Operator Relationship Specialty Start Date End Date Vernell Espinoza MD PCP - Pediatrics 02/10/09 Vernell Espinoza MD [address] [facility] [place] [id number] PCP - General 07/04/09 09/14/18 documented as of this encounter
--- OUTSIDE RECORDS SUMMARY | 2024-04-04 08:34 | XMS_ITS | Encounter Summary ---
Author Organization [facility] Address [address] [facility] [place] [address] Care Team Providers Care Locker Room Supervisor Name Role Phone Vernell Espinoza MD Unavailable Vernell Espinoza MD Primary Care Provider [phone] Encounter Details Date Type Department Care Team (Late st Contact Info) Description 03/01/2011 Orders Only [facility] Medical [facility] - Pediatrics [address] [place] [phone] Rebecca Jean MD [address] [place] [phone] Pharyngitis, acute Social History Tobacco Use Types Packs/Day Years Used Date Smoking Tobacco: Never Assessed Sex and Gender Information Value Date Recorded Sex Assigned at Not on file Gender Identity Not on file Sexual Orientation Not on file documented as of this encounter Progress Notes * Salome Urena RN - 03/06/2011 11:43 AM CSTQuick Note: Gave Mom info from Dr Jean. Mom said that pt may be running a very low-grade fever, if at all. Momhasn't really taken pt's temp, and Mom also said that the whole family has been running low-grade fevers. Mom's has been there for 2 weeks, but her own doctor said that it was just viral. Told Mom tolet us know if pt's symptoms worsen or don't improve. Verbalized understanding. MS COUNSEL * Salome Urena RN - 03/05/2011 1:37 PM CSTQukailyn Note: Left a message at [phone]. Gave Mom info from Dr Jean but also asked whether fever is gone. MS COUNSEL * Rebecca Jean MD - 03/05/2011 11:17 AM CSTQuick Note: Tell mom to expect cough likely even after abx is completed. Is her fever gone? That is more important. MS COUNSEL * Salome Urena RN - 03/05/2011 11:16 AM CSTQuick Note: Told Mom that throat culture was normal. Sore throat is gone, but pt still has a deep cough. Pt hasonly been on an antibiotic for the past 3 days, though. Told Mom to give the antibiotic a little more time but to call the office if symptoms worsen or don't improve. Verbalized understanding. MS COUNSEL * Rebecca Jean MD - 03/05/2011 11:03 AM CSTQukailyn Note: Let mom know that throat cx is negative MS COUNSEL documented in this encounter Plan of Treatment Not on file documented as of this encounter Procedures Procedure Name Priority Date/Time Associated Diagnosis Comments CULTURE STREP GROUP A 03/01/2011 10:21 AM CLAIMS COUNSEL Pharyngitis, acute documented in this encounter Results * CULTURE STREP GROUP A (03/01/2011 10:21 AM CLAIMS COUNSEL) Beta-Strep Culture, Group A Only Negative [facility] ACCOUNT BILL ENTIRE PHARYNX / Unknown 03/01/2011 10:21 AM CLAIMS COUNSEL 03/01/2011 9:51 PM CLAIMS COUNSEL Narrative Resulting Agency Comment [facility] [address] [facility] ??[facility] [id number] Rebecca Jean MD LAB - MICROBIOLOGY O RDERABLES [facility] ACCOUNT BILL documented in this encounter Visit Diagnoses Diagnosis Pharyngitis, acute- Primary Acute pharyngitis documented in this encounter Care Teams Locker Room Supervisor Relationship Specialty Start Date End Date Vernell Espinoza MD PCP - Pediatrics 02/10/09 Vernell Espinoza MD [address] [place] [address] PCP - General 07/04/09 09/14/18 documented as of this encounter
--- OUTSIDE RECORDS SUMMARY | 2024-04-04 08:34 | XMS_ITS | Encounter Summary ---
Author Organization [facility] Address [address] [place] [address] Care Team Providers Care It Account Manager Name Role Phone Vernell Espinoza MD Unavailable Reason for Visit * Reason Onset Date Comments Results 04/20/2009 Encounter Details Date Type Department Care Team (Late st Contact Info) Description 04/20/[address] [facility] Medical [facility] - Pediatrics [address] [place] [phone] Rebecca Jean MD [address] [place] [phone] Results Social History Tobacco Use Types Packs/Day Years Used Date Smoking Tobacco: Never Assessed Sex and Gender Information Value Date Recorded Sex Assigned at Not on file Gender Identity Not on file Sexual Orientation Not on file documented as of this encounter Miscellaneous Notes * Telephone Encounter - Rebecca Jean MD - 04/20/2009 9:21 AM CST Spoke with pt's mother re: lab testing from [place] [facility] visit. EBV testing-no acute infection, but has had in the past. Antistreptolysin testing--+for recent strep infection Advised to finish amoxil that they have at home. HRAGM BUILDER documented in this encounter Plan of Treatment Not on file documented as of this encounter Visit Diagnoses Not on filedocumented in this encounter Care Teams It Account Manager Relationship Specialty Start Date End Date Vernell Espinoza MD PCP - Pediatrics 02/10/09 documented as of this encounter
--- OUTSIDE RECORDS SUMMARY | 2024-04-04 08:34 | XMS_ITS | Encounter Summary ---
Author Organization [facility] Address [address] [place] [address] Care Team Providers Care Foreign Policy Officer Name Role Phone Vernell Espinoza MD Unavailable Vernell Espinoza MD Primary Care Provider [phone] Reason for Visit * Reason Comments Fever up to 104.0 degrees Sore Throat when swallowing x24h rs Encounter Details Date Type Department Care Team (Late st Contact Info) Description 09/29/2009 3:20 PM CDT Office Visit [facility] Medical [facility] - Pediatrics [address] [place] [phone] Vernell Espinoza MD [address] [place] [address] Acute Tonsillitis (Primary Dx) Social History Tobacco Use Types Packs/Day Years Used Date Smoking Tobacco: Never Assessed Sex and Gender Information Value Date Recorded Sex Assigned at Not on file Gender Identity Not on file Sexual Orientation Not on file documented as of this encounter Last Filed Vital Signs Vital Sign Reading Time Taken Comments Blood Pressure - - Pulse - - Temperature 38.8 ??C (101.9 ??F) 09/29/2009 3:45 PM C DT Respiratory Rate - - Oxygen Saturation - - Inhaled Oxygen Concentration - - Weight 23 kg (50 lb 12.8 oz) 09/29/2009 3:45 PM CDT Height - - Body Mass Index - - documented in this encounter Progress Notes * Salome Ambrocio RN - 10/04/2009 11:19 AM CDTQuick Note: Mom informed of neg throat cx.. * Salome Ambrocio RN - 10/04/2009 9:32 AM CDTQuick Note: Phone call placed to pt's home number to report lab result. No answer. Message left for parent to call office for result. * eVrnell Espinoza MD - 10/04/2009 9:08 AM CDTQuick Note: Please call the parent and let him/her know the results are normal. * Vernell Espinoza MD - 09/29/2009 3:46 PM CDT SUBJECTIVE: Aviva Alvarez is a 4 y.o.brought by mother who complains of sore throat for 1 day(s). Fever: Yes Headache:No Stomach ache:Yes URI symptoms: No OBJECTIVE: Temp (Src) 101.9 ??F (Oral) Wt 23.043 kg (50 lb 12.8 oz) General appearance: alert, well appearing, and in no distress. Ears: bilateral TM's and external ear canals normal Nose: normal and patent, no erythema, discharge or polyps Oropharynx: tonsils hypertrophied with exudate Neck: bilateral symmetric anterior adenopathy, supple Lungs: clear to auscultation, no wheezes, rales or rhonchi, symmetric air entry Heart - regular rate and rhythm, normal S1 and S2, no murmurs Abdomen:NT, ND, normal BS's, no HSM ASSESSMENT: Tonsillitis possible Strep throat PLAN: See orders for this visit as documented in the electronic medical record Strep culture sent Symptomatic treatment discussed. documented in this encounter Plan of Treatment Not on file documented as of this encounter Procedures Procedure Name Priority Date/Time Associated Diagnosis Comments CULTURE AEROBIC+GRAM STAIN Routine 09/29/2009 4:30 PM CDT Acute Tonsillitis STREP A SCREEN - POINT OF CARE (AMB) Routine 09/29/2009 4:04 PM CDT Acute Tonsillitis documented in this encounter Results * CULTURE ROUTINE (09/29/2009 4:30 PM CDT) Aerobic Bacterial Culture Final report [facility] ACCOUNT BILL Result 1 [facility] ACCOUNT BILL Comment:Routine respiratory sahdy ENTIRE PHARYNX / Unknown 09/29/2009 4:30 PM CDT 09/29/2009 10:01 PM CDT Narrative Resulting Agency Comment [facility] [place] [id number] [facility] ??[facility] [id number] Vernell Espinoza MD LAB - MICROBIOLOGY O RDERABLES [facility] ACCOUNT BILL * (ABNORMAL) STREP A SCREEN - POINT OF CARE (AMB) (09/29/2009 4:04 PM CDT) Strep A Rapid POCT negative NEGATIVE - POSITIVE Strep A Internal Control NEGATIVE - POSITIVE ENTIRE THROAT (SURFACE REGION OF NECK) / Unknown Vernell Espinoza MD LAB - POINT OF CARE ORDERABLES documented in this encounter Visit Diagnoses Diagnosis Acute tonsillitis- Primary documented in this encounter Care Teams Foreign Policy Officer Relationship Specialty Start Date End Date Vernell Espinoza MD PCP - Pediatrics 02/10/09 Vernell Espinoza MD [address] [place] [phone] PCP - General 07/04/09 09/14/18 documented as of this encounter
--- OUTSIDE RECORDS SUMMARY | 2024-04-04 08:34 | XMS_ITS | Encounter Summary ---
Author Organization [facility] Address [address] [place] [address] Care Team Providers Care Vertical Roll Operator Name Role Phone Vernell Espinoza MD Unavailable Vernell Espinoza MD Primary Care Provider [phone] Reason for Visit * Reason Onset Date Comments Question 04/03/2010 Encounter Details Date Type Department Care Team (Late st Contact Info) Description 04/03/2010 Telephone [facility] - Pediatrics [address] [place] [address] [place] [phone] Rebecca Jean MD [address] [place] [phone] Question Social History Tobacco Use Types Packs/Day Years Used Date Smoking Tobacco: Never Assessed Sex and Gender Information Value Date Recorded Sex Assigned at Not on file Gender Identity Not on file Sexual Orientation Not on file documented as of this encounter Miscellaneous Notes * Telephone Encounter - Salome Ambrocio RN - 04/03/2010 5:[address] Jean aware of pt status and agrees with advice given. ACE UNLOADER * Telephone Encounter - Salome Ambrocio RN - 04/03/2010 1:14 PM FURNACE UNLOADER Mom says pt has had fever, cough, runny nose, decreased appetite for solids x1 week. Temps normal during the day and usually fever in evening. Active during the day. Questioning whether something canbe given to her to help her get over flu quicker. Explained to Mom that if this is influenza, has had sx too long for tamiflu to be beneficial. Continue to encourage rest, fluids, otc meds prn sx relief, Tylenol or Motrin for discomfort related to fever. OV if sx do not start improving within the next 48hrs. Verbalized understanding and willingness to comply. ACE UNLOADER * Telephone Encounter - Cory Diaz - 04/03/2010 1:04 PM CST Mom called and said she was exposed to someone with influenza a and didn't know if she could buy a preventative or be prescribed one? ACE UNLOADER documented in this encounter Plan of Treatment Not on file documented as of this encounter Visit Diagnoses Not on filedocumented in this encounter Care Teams Vertical Roll Operator Relationship Specialty Start Date End Date Vernell Espinoza MD PCP - Pediatrics 02/10/09 Vernell Espinoza MD [address] [facility] [phone] PCP - General 07/04/09 09/14/18 documented as of this encounter
--- OUTSIDE RECORDS SUMMARY | 2024-04-04 08:34 | XMS_ITS | Encounter Summary ---
Author Organization [facility] Address [address] [facility] [place] [address] Care Team Providers Care Body Recall Instructor Name Role Phone Octavio Simeon MD Unavailable Octavio Simeon MD Primary Care Provider [phone] Reason for Visit * Reason Comments Fever Sore Throat Encounter Details Date Type Department Care Team (Late st Contact Info) Description 07/25/2009 3:40 PM CDT Office Visit [facility] - Pediatrics [address] [place] [phone] Octavio Simeon MD [address] [place] [phone] Acute Pharyngitis (Primary Dx) Social History Tobacco Use Types Packs/Day Years Used Date Smoking Tobacco: Never Assessed Sex and Gender Information Value Date Recorded Sex Assigned at Not on file Gender Identity Not on file Sexual Orientation Not on file documented as of this encounter Last Filed Vital Signs Vital Sign Reading Time Taken Comments Blood Pressure - - Pulse - - Temperature 40.1 ??C (104.2 ??F) 07/25/2009 3:35 PM C DT Respiratory Rate - - Oxygen Saturation - - Inhaled Oxygen Concentration - - Weight 22.4 kg (49 lb 6.4 oz) 07/25/2009 3:35 PM CDT Height - - Body Mass Index - - documented in this encounter Progress Notes * Octavio Simeon MD - 07/29/2009 4:41 PM CDTQuick Note: Mom aware of ebv results, patient is doing better. * Salome Ambrocio, LYUBOV - 07/28/2009 4:13 PM CDTQuick Note: Informed Mom of neg throat cx results. Mom concerned that pt still has red and painful throat. Dr Simeon aware. Placing order for mono screen and EBV panel. Mom informed. Verbalized understanding and willingness to comply. * Octavio Simeon MD - 07/28/2009 3:31 PM CDT Throat culutre negative, still complaining of sore throat . Ordered mono and ebv panel, mom informed. * Octavio Simeon MD - 07/28/2009 3:21 PM CDTAddended by: OCTAVIO SIMEON on: 07/28/2009 3:21:18 PM Modules accepted: Orders * Octavio Simeon MD - 07/28/2009 3:18 PM CDTQuick Note: Please call the parent and let him/her know the results are normal. * Octavio Simeon MD - 07/25/2009 3:37 PM CDT SUBJECTIVE: Aviva Alvarez is a 4 y.o.brought by mother who complains of sore throat for 1 day(s). Fever: Yes for 2 days, t max 104 Headache:No Stomach ache:No URI symptoms: No OBJECTIVE: Temp (Src) 104.2 ??F (Temporal artery) Wt 22.408 kg (49 lb 6.4 oz) General appearance: alert, well appearing, and in no distress. Ears: bilateral TM's and external ear canals normal Nose: normal and patent, no erythema, discharge or polyps Oropharynx: tonsils hypertrophied with exudate, palatal petechia Neck: bilateral symmetric anterior adenopathy Lungs: clear to auscultation, no wheezes, rales or rhonchi, symmetric air entry Heart - regular rate and rhythm, normal S1 and S2, no murmurs ASSESSMENT: Pharyngitis- most likely Strep throat PLAN: See orders for this visit as documented in the electronic medical record, will treat with zithromax Strep culture sent Symptomatic treatment discussed. F/u in 2 weeks documented in this encounter Plan of Treatment Not on file documented as of this encounter Procedures Procedure Name Priority Date/Time Associated Diagnosis Comments MONONUCLEOSIS SCREEN Routine 07/28/2009 4:15 PM CDT Acute Pharyngitis ROSALVA-MESSINA VIRUS ANTIBODY PANEL Routine 07/28/2009 4:15 PM CDT Acute Pharyngitis STREP A SCREEN - POINT OF CARE (AMB) Routine 07/25/2009 3:56 PM CDT Acute Pharyngitis CULTURE AEROBIC+GRAM STAIN Routine 07/25/2009 3:55 PM CDT Acute Pharyngitis documented in this encounter Results * (ABNORMAL) ROSALVA-BAR VIRUS PANEL (07/28/2009 4:15 PM CDT) Rosalva-Messina Viral Capsid Antigen Antibody IgM <0.2 0.0 - 0.8 AI [facility] ACCOUNT BILL Comment: ?Negative ?<0.9 ?Equivocal ??0.9 - 1.0 ?Positive ?>1.0 Rosalva-Messina Virus Early Antigen Antibody IgG 0.2 0.0 - 0.8 AI [facility] ACCOUNT BILL Comment: ?Negative ?<0.9 ?Equivocal ??0.9 - 1.0 ?Positive ?>1.0 Rosalva-Messina Viral Capsid Antigen Antibody IgG >8.0(H) 0.0 - 0.8 AI [facility] ACCOUNT BILL Comment: ?Negative ?<0.9 ?Equivocal ??0.9 - 1.0 ?Positive ?>1.0 Rosalva-Messina Virus Antibody IgG Nuclear Antigen >8.0(H) 0.0 [...] PM CDT Narrative Resulting Agency Comment [facility] [place] [address] ??[facility] [phone] Octavio Simeon MD LAB - CHEMISTRY MARILUZ BELLA [facility] ACCOUNT BILL * MONONUCLEOSIS SCREEN (07/28/2009 4:15 PM CDT) Mononucleosis Test Qualitative Negative Negative [facility] ACCOUNT BILL Comment: The sensitivity of Heterophile antibody testing is 80-90%. Rosalva Messina IgM testing offers higher sensitivity. BLOOD SPECIMEN / Unknown 07/28/2009 4:15 PM CDT 07/28/2009 10:39 PM CDT Narrative Resulting Agency Comment [facility] [address] ??Critical access hospital [phone] Octavio Simeon MD LAB - CHEMISTRY MARILUZ BELLA Performing Organization Address City/[facility]/ZIP Co de Phone Number [facility] ACCOUNT BILL * STREP A SCREEN - POINT OF CARE (AMB) (07/25/2009 3:56 PM CDT) Strep A Rapid POCT negative NEGATIVE - POSITIVE Strep A Internal Control NEGATIVE - POSITIVE ENTIRE THROAT (SURFACE REGION OF NECK) / Unknown Octavio Simeon MD LAB - POINT OF CARE ORDERABLES * CULTURE ROUTINE (07/25/2009 3:55 PM CDT) Aerobic Bacterial Culture Final report [facility] ACCOUNT BILL Result 1 [facility] ACCOUNT BILL Comment:Routine respiratory shady ENTIRE PHARYNX / Unknown 07/25/2009 3:55 PM CDT 07/25/2009 10:54 PM CDT Narrative Resulting Agency Comment [facility] [place] [address] ??Critical access hospital [phone] Octavio Simeon MD LAB - MICROBIOLOGY O RDERABLES Performing Organization Address [facility] Co de Phone Number [facility] ACCOUNT BILL documented in this encounter Visit Diagnoses Diagnosis Acute pharyngitis- Primary documented in this encounter Care Teams Body Recall Instructor Relationship Specialty Start Date End Date Octavio Simeon MD PCP - Pediatrics 02/10/09 Octavio Simeon MD [address] [place] [address] PCP - General 07/04/09 09/14/18 documented as of this encounter
--- OUTSIDE RECORDS SUMMARY | 2024-04-04 08:34 | XMS_ITS | Encounter Summary ---
Author Organization [facility] Address [address] [facility] [place] [address] Care Team Providers Care Kidney Puller Name Role Phone Vernell Espinoza MD Unavailable Reason for Visit * Reason Comments Sore Throat since yesterday, afe brile, stopped Amox on 06/11/2009 for Strep Vomiting x 1 yesterday Cough x 3 days Headache Encounter Details Date Type Department Care Team (Late st Contact Info) Description 06/14/2009 4:15 PM CDT Office Visit [facility] Medical [facility] - Pediatrics [address] [place] [phone] Drew Cartwright MD [address] [place] [phone] Streptococcal Sore Throat (Primary Dx) Social History Tobacco Use Types Packs/Day Years Used Date Smoking Tobacco: Never Assessed Sex and Gender Information Value Date Recorded Sex Assigned at Not on file Gender Identity Not on file Sexual Orientation Not on file documented as of this encounter Last Filed Vital Signs Vital Sign Reading Time Taken Comments Blood Pressure - - Pulse - - Temperature 37.7 ??C (99.8 ??F) 06/14/2009 4:14 PM CD T Respiratory Rate - - Oxygen Saturation - - Inhaled Oxygen Concentration - - Weight 22 kg (48 lb 9.6 oz) 06/14/2009 4:14 PM C DT Height - - Body Mass Index - - documented in this encounter Progress Notes * Drew Cartwright MD - 06/16/2009 9:47 AM CDTAddended by: DREW CARTWRIGHT on: 06/16/2009 9:47:19 AM Modules accepted: Orders * Drew Cartwright MD - 06/14/2009 4:56 PM CDT Aviva Diamondsmith. 4 y.o., female, here for evaluation of sore throat. Symptoms started 1 days ago. Recently tx'd for strep earlier in the month Fever: No, Tmax Runny Nose: No, Congestion: No Cough: Yes, dry Headache: Yes Abd Pain: No Rash: No Sleep: good Appetite: fair Fluids: good Medications: none PE: Temp (Src) 99.8 ??F (Temporal artery) Wt 22.045 kg (48 lb 9.6 oz) Alert NAD SHEENT: Skin: no observable rash Ears: Left: Normal Right: Normal Throat:injected Tonsils: moderately erythematous nor with thick exudate Neck: supple Heart: Normal PMI. regular rate and rhythm, normal S1, S2, no murmurs or gallops. Lungs: Respiratory effort normal, clear to auscultation, normal breath sounds bilaterally Rapid Strep: positive Impression: Strep Pharyngitis Plan: Rx azithro as per orders Change toothbrush. Fever control and encourage fluids. Follow up prn. documented in this encounter Plan of Treatment Not on file documented as of this encounter Procedures Procedure Name Priority Date/Time Associated Diagnosis Comments STREP A SCREEN - POINT OF CARE (AMB) Routine 06/14/2009 Streptococcal Sore Throat documented in this encounter Results * (ABNORMAL) STREP A SCREEN - POINT OF CARE (AMB) (06/14/2009) Strep A Rapid POCT POS NEGATIVE - POSITIVE Strep A Internal Control NEGATIVE - POSITIVE ENTIRE THROAT (SURFACE REGION OF NECK) / Unknown Drew Cartwright MD LAB - POINT OF CARE ORDERABLES documented in this encounter Visit Diagnoses Diagnosis Streptococcal sore throat- Primary documented in this encounter Care Teams Kidney Puller Relationship Specialty Start Date End Date Vernell Espinoza MD PCP - Pediatrics 02/10/09 documented as of this encounter
--- OUTSIDE RECORDS SUMMARY | 2024-04-04 08:34 | XMS_ITS | Encounter Summary ---
Author Organization [facility] Address [address] [facility] [place] [address] Care Team Providers Care Operator Bearer Systems Name Role Phone Vernell Espinoza MD Unavailable Vernell Espinoza MD Primary Care Provider [phone] Encounter Details Date Type Department Care Team (Latest Contact Info) Description 05/15/2010 3:30 PM PLASTICS TECHNICIAN Hospital Encounter [facility] Pediatrics - Ophthalmology [address] [place] [phone] Tyrell Pina MD [address] [place] [phone] Ophthalmology Discharge Disposition: Home or Self Care Social History Tobacco Use Types Packs/Day Years Used Date Smoking Tobacco: Never Assessed Sex and Gender Information Value Date Recorded Sex Assigned at Not on file Gender Identity Not on file Sexual Orientation Not on file documented as of this encounter Plan of Treatment Not on file documented as of this encounter Visit Diagnoses Not on filedocumented in this encounter Care Teams Operator Bearer Systems Relationship Specialty Start Date End Date Vernell Espinoza MD PCP - Pediatrics 02/10/09 Vernell Espinoza MD [address] [place] [phone] PCP - General 07/04/09 09/14/18 documented as of this encounter
--- OUTSIDE RECORDS SUMMARY | 2024-04-04 08:34 | XMS_ITS | Encounter Summary ---
Author Organization [facility] Address [address] [facility] [place] [address] Care Team Providers Care End Touching Machine Operator Name Role Phone Vernell Espinoza MD Unavailable Vernell Espinoza MD Primary Care Provider [phone] Reason for Visit * Reason Comments Sore Throat Encounter Details Date Type Department Care Team (Latest Contact Info) Description 06/10/2010 10:00 AM BELT KNIFE FEEDER Office Visit [facility] - Pediatrics [address] [place] [address] [address] [place] [phone] Vernell Espionza MD [address] [facility] [place] [address] Streptococcal sore throat (Primary Dx) Social History Tobacco Use Types Packs/Day Years Used Date Smoking Tobacco: Never Assessed Sex and Gender Information Value Date Recorded Sex Assigned at Not on file Gender Identity Not on file Sexual Orientation Not on file documented as of this encounter Last Filed Vital Signs Vital Sign Reading Time Taken Comments Blood Pressure - - Pulse - - Temperature 38 ??C (100.4 ??F) 06/10/2010 10:24 AM CS T 0900 Ibupofen Respiratory Rate - - Oxygen Saturation - - Inhaled Oxygen Concentration - - Weight 25.9 kg (57 lb) 06/10/2010 10:24 AM BELT KNIFE FEEDER Height - - Body Mass Index - - documented in this encounter Progress Notes * Vernell Espinoza MD - 06/10/2010 10:37 AM CST SUBJECTIVE: Aviva Alvarez is a 5 y.o.brought by both parents who complains of sore throat for 1 day(s). Fever: Yes, tmax 100.4 Headache:No Stomach ache:No URI symptoms: No OBJECTIVE: Temp(Src) 100.4 ??F (Temporal Artery) Wt 57 lb (25.855 kg) General appearance: alert, well appearing, and in no distress. Ears: bilateral TM's and external ear canals normal Nose: normal and patent, no erythema, discharge or polyps Oropharynx: erythematous and tonsils hypertrophied with exudate Neck: supple, no significant adenopathy Lungs: clear to auscultation, no wheezes, rales or rhonchi, symmetric air entry Heart - regular rate and rhythm, normal S1 and S2, no murmurs ASSESSMENT: Pharyngitis Strep throat PLAN: See orders for this visit as documented in the electronic medical record Symptomatic treatment discussed. KNIFE FEEDER documented in this encounter Plan of Treatment Not on file documented as of this encounter Procedures Procedure Name Priority Date/Time Associated Diagnosis Comments STREP A SCREEN - POINT OF CARE (AMB) Routine 06/10/2010 10:37 AM BELT KNIFE FEEDER Streptococcal sore throat documented in this encounter Results * (ABNORMAL) STREP A SCREEN - POINT OF CARE (AMB) (06/10/2010 10:37 AM BELT KNIFE FEEDER) Strep A Rapid POCT positive NEGATIVE - POSITIVE Strep A Internal Control NEGATIVE - POSITIVE Throat swab (specimen) ENTIRE THROAT (SURFACE REGION OF NECK) / Unknown 06/10/2010 10:37 AM BELT KNIFE FEEDER Vernell Espinoza MD LAB - POINT OF CARE ORDERABLES documented in this encounter Visit Diagnoses Diagnosis Streptococcal sore throat- Primary documented in this encounter Care Teams End Touching Machine Operator Relationship Specialty Start Date End Date Vernell Espinoza MD PCP - Pediatrics 02/10/09 Vernell Espinoza MD [address] [place] [address] PCP - General 07/04/09 09/14/18 documented as of this encounter
--- OUTSIDE RECORDS SUMMARY | 2024-04-04 08:34 | XMS_ITS | Encounter Summary ---
Author Organization [facility] Address [address] [facility] [place] [address] Care Team Providers Care Utility Gelatin Maker Name Role Phone Vernell Espinoza MD Unavailable Reason for Visit * Reason Onset Date Comments Med Question 04/25/2009 Encounter Details Date Type Department Care Team (Late st Contact Info) Description 04/25/2009 Telephone [facility] - Pediatrics [address] [place] [phone] Vernell Espinoza MD [address] [place] [phone] Med Question Social History Tobacco Use Types Packs/Day Years Used Date Smoking Tobacco: Never Assessed Sex and Gender Information Value Date Recorded Sex Assigned at Not on file Gender Identity Not on file Sexual Orientation Not on file documented as of this encounter Miscellaneous Notes * Telephone Encounter - Salome Ambrocio RN - 04/25/2009 3:13 PM PUBLIC HEALTH SERVICE OFFICER Informed Mom of Dr. Espinoza's request to complete the ten days of abx and informed her that script sent to [facility]. Verbalized understanding and willingness to comply. IC HEALTH SERVICE OFFICER * Telephone Encounter - Vernell Espinoza MD - 04/25/2009 3:09 PM CST Salome, please let the mom know to complete ten days of antibiotics, it was called in already., IC HEALTH SERVICE OFFICER * Telephone Encounter - Jeni Woodard - 04/25/2009 2:11 PM CST WAS ON AMOX THE WAS INSTRUCTED TO STOP AND RESTART DOES NOT HAVE ENOUGH FOR A 10 DAY SUPPLY. WANTS TO KNOW WHAT TO DO. IC HEALTH SERVICE OFFICER documented in this encounter Plan of Treatment Not on file documented as of this encounter Visit Diagnoses Not on filedocumented in this encounter Care Teams Utility Gelatin Maker Relationship Specialty Start Date End Date Vernell Espinoza MD PCP - Pediatrics 02/10/09 documented as of this encounter
--- OUTSIDE RECORDS SUMMARY | 2024-04-04 08:34 | XMS_ITS | Encounter Summary ---
Author Organization [facility] Address [address] [facility] [place] [address] Care Team Providers Care Memorial Marker Designer Name Role Phone Vernell Espinoza MD Unavailable Vernell Espinoza MD Primary Care Provider [phone] Reason for Visit * Reason Comments Ear Problem Encounter Details Date Type Department Care Team (Late st Contact Info) Description 04/25/2012 3:50 PM OIL CHANGE TECHNICIAN Office Visit [facility] - Pediatrics [address] [place] [address] [address] [place] [phone] Vernell Espinoza MD [address] [place] [address] Right serous otitis media (Primary Dx) Social History Tobacco Use Types Packs/Day Years Used Date Smoking Tobacco: Never Assessed Sex and Gender Information Value Date Recorded Sex Assigned at Not on file Gender Identity Not on file Sexual Orientation Not on file documented as of this encounter Last Filed Vital Signs Vital Sign Reading Time Taken Comments Blood Pressure - - Pulse - - Temperature 36.4 ??C (97.5 ??F) 04/25/2012 3:40 PM CS T Respiratory Rate - - Oxygen Saturation - - Inhaled Oxygen Concentration - - Weight 37.1 kg (81 lb 12.8 oz) 04/25/2012 3:40 P M OIL CHANGE TECHNICIAN Height - - Body Mass Index - - documented in this encounter Progress Notes * Vernell Espinoza MD - 04/25/2012 3:40 PM CST Aviva Alvarez is a 7 y.o. female accompanied to office today by parents for f/u of decreased hearing last month. Pt has since passed the last hearing test at school. No fever, no uri symptoms, no hearing difficultu OBJECTIVE: Temp(Src) 97.5 ??F (Temporal Artery) Wt 37.104 kg (81 lb 12.8 oz) General appearance: alert, well appearing, and in no distress. Ears: left ear normal, right ear fluid behind the tm small amount behind the lower end of tm ASSESSMENT: Right serous otitis media - resolving not causing any symptoms, hearing normal PLAN: Reassurance. Advised follow up and recheck at her annual physical exam CHANGE TECHNICIAN documented in this encounter Plan of Treatment Not on file documented as of this encounter Visit Diagnoses Diagnosis Right serous otitis media- Primary Nonsuppurative otitis media, not specified as acute or chronic documented in this encounter Care Teams Memorial Marker Designer Relationship Specialty Start Date End Date Vernell Espinoza MD PCP - Pediatrics 02/10/09 Vernell Espinoza MD [address] [facility] [place] [address] PCP - General 07/04/09 09/14/18 documented as of this encounter
--- OUTSIDE RECORDS SUMMARY | 2024-04-04 08:34 | XMS_ITS | Encounter Summary ---
Author Organization [facility] Address [address] [place] [address] Care Team Providers Care Storage Manager Name Role Phone Vernell Espinoza MD Unavailable Reason for Visit * Reason Comments Swelling Gland beneath right ear x2 days Vomiting this am Fever assumed this am Encounter Details Date Type Department Care Team (Late st Contact Info) Description 04/12/2009 9:10 AM PHARMACEUTICAL SPECIALTY REPRESENTATIVE Office Visit [facility] Medical [facility] - Pediatrics [address] [place] [address] [address] [place] [address] Vernell Espinoza MD [address] [place] [address] Lymphadenitis, Unspecified, except Mesenteric (Primary Dx) Social History Tobacco Use Types Packs/Day Years Used Date Smoking Tobacco: Never Assessed Sex and Gender Information Value Date Recorded Sex Assigned at Not on file Gender Identity Not on file Sexual Orientation Not on file documented as of this encounter Last Filed Vital Signs Vital Sign Reading Time Taken Comments Blood Pressure - - Pulse - - Temperature 36.2 ??C (97.1 ??F) 04/12/2009 9:15 AM CS T Respiratory Rate - - Oxygen Saturation - - Inhaled Oxygen Concentration - - Weight 22.5 kg (49 lb 8 oz) 04/12/2009 9:[address] Height - - Body Mass Index - - documented in this encounter Progress Notes * Vernell Espinoza MD - 04/12/2009 9:58 AM CST SUBJECTIVE: Aviva Alvarez is a 4 y.o. female accompanied by her grandmother and aunt, she complains of smallamount of mucusy vomit 5 x this morning, no diarrhea. Possible fever this morning, no tyelenol today. Neck pain over the weekend, went to the school nurse on Saturday and the nurse noted that her ear looked red. Has been sneezing, but denies cough, sore throat, and nasal congestion. OBJECTIVE: Temp (Src) 97.1 ??F (Oral) Wt 22.453 kg (49 lb 8 oz) General appearance: alert, well appearing, and in no distress. Ears: bilateral TM's and external ear canals normal Nose: normal and patent, no erythema, discharge or polyps Oropharynx: tonsils hypertrophied 1+without exudate Neck: adenopathy noted right submandibular gland 3cm tender gland noted, left shoddy submandibular gland Lungs: clear to auscultation, no wheezes, rales or rhonchi, symmetric air entry Heart - regular rate and rhythm, normal S1 and S2, no murmurs Abdomen:NT, ND, normal BS's, no HSM Skin:Skin color, texture, turgor normal. No rashes or lesions ASSESSMENT: Lymphadenitis(cervical) PLAN: See orders for this visit as documented in the electronic medical record Symptomatic therapy suggested: use acetaminophen, ibuprofen prn. MACEUTICAL SPECIALTY REPRESENTATIVE * Salome Ambrocio RN - 04/12/2009 9:19 AM CST Pt is accompanied to office today by grandmother. States that pt came home from dad's x2 days ago. Complaining that her neck hurt beneath her right ear. Noted a knot there. Complaining of the pain again yesterday and went to nurse's office. Nurse found swollen gland and said that right eardrum reddened. Throat a little red this am. Assumed fever this am. Started vomiting this am. Has not had anything to eat or drink this am. Has voided around 0800 this am Grandmother unsure of pharmacy that family uses. MACEUTICAL SPECIALTY REPRESENTATIVE documented in this encounter Plan of Treatment Not on file documented as of this encounter Visit Diagnoses Diagnosis Lymphadenitis, unspecified, except mesenteric- Primary documented in this encounter Care Teams Storage Manager Relationship Specialty Start Date End Date Vernell Espinoza MD PCP - Pediatrics 02/10/09 documented as of this encounter
--- OUTSIDE RECORDS SUMMARY | 2024-04-04 08:34 | XMS_ITS | Encounter Summary ---
Author Organization [facility] Address [address] [address] [place] [address] Care Team Providers Care Dewaxer Name Role Phone Vernell Espinoza MD Unavailable Vernell Espinoza MD Primary Care Provider [phone] Reason for Visit * Reason Onset Date Comments Results 07/29/2009 Encounter Details Date Type Department Care Team (Late st Contact Info) Description 07/29/2009 Telephone [facility] - Pediatrics [address] [place] [address] [address] [place] [phone] Vernell Espinoza MD [address] [place] [address] Results Social History Tobacco Use Types Packs/Day Years Used Date Smoking Tobacco: Never Assessed Sex and Gender Information Value Date Recorded Sex Assigned at Not on file Gender Identity Not on file Sexual Orientation Not on file documented as of this encounter Miscellaneous Notes * Telephone Encounter - Sheyla Solomon RN - 07/29/2009 3:32 PM CDT Spoke to mother regarding negative mono test and abnormal Mindy Wiggins. Mother states Aviva is better today with low grade fever, drinking and eating well & playing. Has follow up appt for 08/08/09 documented in this encounter Plan of Treatment Not on file documented as of this encounter Visit Diagnoses Not on filedocumented in this encounter Care Teams Dewaxer Relationship Specialty Start Date End Date Vernell Espinoza MD PCP - Pediatrics 02/10/09 Vernell Espinoza MD [address] [place] [address] PCP - General 07/04/09 09/14/18 documented as of this encounter
--- OUTSIDE RECORDS SUMMARY | 2024-04-04 08:34 | XMS_ITS | Encounter Summary ---
Author Organization [facility] Address [address] [facility] [place] [address] Care Team Providers Care Table Games Manager Name Role Phone Vernell Espinoza MD Unavailable Reason for Visit * Reason Onset Date Comments Fever 04/15/2009 Encounter Details Date Type Department Care Team (Late st Contact Info) Description 04/15/2009 Telephone [facility] - Pediatrics [address] [place] [phone] Rebecca Jean MD [address] [place] [phone] Fever Social History Tobacco Use Types Packs/Day Years Used Date Smoking Tobacco: Never Assessed Sex and Gender Information Value Date Recorded Sex Assigned at Not on file Gender Identity Not on file Sexual Orientation Not on file documented as of this encounter Miscellaneous Notes * Telephone Encounter - Rebecca Jean MD - 04/18/2009 3:56 PM CST Pt came in on Sat. Waiting for mono results. ET CLERK * Telephone Encounter - Rebecca Jean MD - 04/18/2009 10:32 AM CST Called mom and left message to call office with update today. ET CLERK * Telephone Encounter - Salome Ambrocio RN - 04/15/2009 3:30 PM DOCKET CLERK Mom is very concerned that pt still has fevers up to 103.7. Has had 3 doses of Clindamycin and is taking Tylenol alt with Motrin q 3 more hours. Still complaining that her neck really hurts. Discussed viral vs bacterial illnesses, fever with mom. May need to give abx a couple of more doses before feeling better. Wanting to take pt to hospital for evaluation. ET CLERK * Telephone Encounter - Jeni Woodard - 04/15/2009 3:02 PM CST HAS QUESTIONS, STILL HAS FEVER ET CLERK documented in this encounter Plan of Treatment Not on file documented as of this encounter Visit Diagnoses Not on filedocumented in this encounter Care Teams Table Games Manager Relationship Specialty Start Date End Date Vernell Espinoza MD PCP - Pediatrics 02/10/09 documented as of this encounter
--- OUTSIDE RECORDS SUMMARY | 2024-04-04 08:34 | XMS_ITS | Encounter Summary ---
Author Organization [facility] Address [address] [facility] [place] [address] Care Team Providers Care Cloth Winder Name Role Phone Vernell Espinoza MD Unavailable Vernell Espinoza MD Primary Care Provider [phone] Reason for Visit * Reason Comments Fever temps 99-102 Sore Throat x3 days Cough x3 days Encounter Details Date Type Department Care Team (Late st Contact Info) Description 06/26/2010 10:30 AM CDT Office Visit [facility] Medical [facility] - Pediatrics [address] [place] [address] [place] [phone] Rebecca Jean MD [address] [place] [phone] Streptococcal sore throat (Primary Dx) Social History [...] Pressure - - Pulse - - Temperature 37.4 ??C (99.4 ??F) 06/26/2010 10:38 AM C DT Respiratory Rate - - Oxygen Saturation - - Inhaled Oxygen Concentration - - Weight 25.1 kg (55 lb 6.4 oz) 06/26/2010 10:38 A M CDT Height - - Body Mass Index - - documented in this encounter Progress Notes * Rebecca Jean MD - 06/26/2010 10:56 AM CDT Aviva Alvarze. 5 y.o., female, here for evaluation of sore throat. Symptoms started 3 days ago. Fever: Yes, Tmax 102 Runny Nose: No, Congestion: No Cough: No, Headache: No Abd Pain: No Rash: No Sleep: fair Appetite: fair Fluids: good Sick contacts with Strep: No--fortino had strep herself, finished abx about 1 week ago Medications: none PE: Temp(Src) 99.4 ??F (Temporal Artery) Wt 55 lb 6.4 oz (25.129 kg) Alert NAD SHEENT: Skin: no observable rash Throat:injected Tonsils: tonsils 3+ red, inflammed Neck: supple, large LAD nontender Heart: Normal PMI. regular rate and rhythm, normal S1, S2, no murmurs or gallops. Lungs: Respiratory effort normal, clear to auscultation, normal breath sounds bilaterally Rapid Strep: positive Impression: Pharyngitis Plan: Rx Azithro x 5 days Fever control and encourage fluids. Follow up prn. Follow up after tx for throat cx. * Salome Ambrocio RN - 06/26/2010 10:39 AM CDT Aviva Alvarez is a 5 y.o. female accompanied to office today by Mom for evaluation of sore throat, fevers, cough x3 days. Temps 99-102. Last dose of Ibuprofen given 7 hrs ago. Completed abx x1 week ago for strep throat. documented in this encounter Plan of Treatment Not on file documented as of this encounter Procedures Procedure Name Priority Date/Time Associated Diagnosis Comments STREP A SCREEN - POINT OF CARE (AMB) Routine 06/26/2010 10:45 AM CDT Streptococcal sore throat documented in this encounter Results * (ABNORMAL) STREP A SCREEN - POINT OF CARE (AMB) (06/26/2010 10:45 AM CDT) Strep A Rapid POCT POS NEGATIVE - POSITIVE Strep A Internal Control NEGATIVE - POSITIVE ENTIRE THROAT (SURFACE REGION OF NECK) / Unknown 06/26/2010 10:45 AM CDT Rebecca Jean MD LAB - POINT OF CARE ORDERABLES documented in this encounter Visit Diagnoses Diagnosis Streptococcal sore throat- Primary documented in this encounter Care Teams Cloth Winder Relationship Specialty Start Date End Date Vernell Espinoza MD PCP - Pediatrics 02/10/09 Vernell Espinoza MD [address] [place] [address] PCP - General 07/04/09 09/14/18 documented as of this encounter
--- OUTSIDE RECORDS SUMMARY | 2024-04-04 08:34 | XMS_ITS | Encounter Summary ---
Author Organization [facility] Address [address] [facility] [place] [address] Care Team Providers Care Real Estate Sales Manager Name Role Phone Vernell Espinoza MD Unavailable Vernell Espinoza MD Primary Care Provider [phone] Reason for Visit * Reason Comments Swelling swollen tonsils; rep eat rapid strep after abx tx Encounter Details Date Type Department Care Team (Latest Contact Info) Description 07/03/2010 3:50 PM CDT Clinical Support [facility] - Pediatrics [address] [place] [phone] Carrier or suspected carrier of streptococcus Social History Tobacco Use Types Packs/Day Years Used Date Smoking Tobacco: Never Assessed Sex and Gender Information Value Date Recorded Sex Assigned at Not on file Gender Identity Not on file Sexual Orientation Not on file documented as of this encounter Progress Notes * Salome Ambrocio RN - 07/06/2010 3:31 PM CDTQuick Note: Phone call placed to patient's home to report negative throat culture results. No answer. Message left reporting the result and to notify office for any further questions or concerns. * Rebecca Jean MD - 07/06/2010 2:08 PM CDTQuick Note: Let family know that cx is negative * Salome Ambrocio RN - 07/03/2010 4:06 PM CDT Aviva Alvarez is a 5 y.o. female accompanied to office today by Mom for rapid strep test following course of abx. Abx completed x2 days ago. Rapid strep neg.. Dr Jean aware. Specimen collected for throat cx. Pt's tonsils remain large and touching uvula from both sides. No redness noted to throat. documented in this encounter Plan of Treatment Not on file documented as of this encounter Procedures Procedure Name Priority Date/Time Associated Diagnosis Comments CULTURE AEROBIC+GRAM STAIN Routine 07/03/2010 4:11 PM CDT Carrier or suspected carrier of streptococcus STREP A SCREEN - POINT OF CARE (AMB) Routine 07/03/2010 3:50 PM CDT Carrier or suspected carrier of streptococcus documented in this encounter Results * CULTURE ROUTINE (07/03/2010 4:11 PM CDT) Aerobic Bacterial Culture Final report [facility] ACCOUNT BILL Result 1 [facility] ACCOUNT BILL Comment:Routine respiratory shady ENTIRE PHARYNX / Unknown 07/03/2010 4:11 PM CDT 07/03/2010 10:59 PM CDT Narrative Resulting Agency Comment [facility] [address] ??[facility] [phone] Rebecca Jean MD LAB - MICROBIOLOGY O RDERABLES [facility] ACCOUNT BILL * STREP A SCREEN - POINT OF CARE (AMB) (07/03/2010 3:50 PM CDT) Strep A Rapid POCT neg NEGATIVE - POSITIVE Strep A Internal Control NEGATIVE - POSITIVE Throat swab (specimen) ENTIRE THROAT (SURFACE REGION OF NECK) / Unknown 07/03/2010 3:50 PM CDT Rebecca Jean MD LAB - POINT OF CARE ORDERABLES documented in this encounter Visit Diagnoses Diagnosis Carrier or suspected carrier of streptococcus- Primary Carrier or suspected carrier of other streptococcus documented in this encounter Care Teams Real Estate Sales Manager Relationship Specialty Start Date End Date Vernell Espinoza MD PCP - Pediatrics 02/10/09 Vernell Espinoza MD [address] [employer] [facility] [facility] [phone] PCP - General 07/04/09 09/14/18 documented as of this encounter
--- OUTSIDE RECORDS SUMMARY | 2024-04-04 08:34 | XMS_ITS | Encounter Summary ---
Author Organization [facility] Address [address] [place] [address] Care Team Providers Care Child Protective Investigator Name Role Phone Vernell Espinoza MD Unavailable Reason for Visit * Reason Comments Sore Throat Encounter Details Date Type Department Care Team (Latest Contact Info) Description 06/02/2009 10:00 AM SIGN SHOP SUPERVISOR Office Visit [facility] - Pediatrics [address] [place] [phone] Vernell Espinoza MD [address] [place] [phone] Streptococcal Sore Throat (Primary Dx) Social History [...] Pressure - - Pulse - - Temperature 37.8 ??C (100.1 ??F) 06/02/2009 9:[address] Respiratory Rate - - Oxygen Saturation - - Inhaled Oxygen Concentration - - Weight 21.7 kg (47 lb 12.8 oz) 06/02/2009 9:57 A M SIGN SHOP SUPERVISOR Height - - Body Mass Index - - documented in this encounter Progress Notes * Vernell Espinoza MD - 06/02/2009 10:11 AM CST SUBJECTIVE: Aviva Alvarez is a 4 y.o.brought by mother who complains of sore throat for 1 day(s). Fever and chills x 1 day, Tmax this morning 103.6 degrees by mouth this am. Last dose Motrin 6.5 hrs ago, temperature in office is 100.1 degrees orally. Headache x 2 days. Intermittant stomach ache x 2 days. Rhinorrhea x 4 days. Activity level decreased. Appetite and fluid intake normal. Denies otalgia, cough. OBJECTIVE: Temp (Src) 100.1 ??F (Oral) Wt 21.682 kg (47 lb 12.8 oz) General appearance: alert, well appearing, and in no distress. Ears: bilateral TM's and external ear canals normal Nose: normal and patent, no erythema, discharge or polyps Oropharynx: mucous membranes moist, pharynx and tonsils erythematous, edematous, Right tonsil whiteexudate; tonsils kissing Neck: bilateral symmetric anterior adenopathy Lungs: clear to auscultation, no wheezes, rales or rhonchi, symmetric air entry Heart - regular rate and rhythm, normal S1 and S2, no murmurs Abdomen:Soft, Non-Tender, NL Bowel Sounds and NT, ND, normal BS's, no HSM ASSESSMENT: Pharyngitis Strep throat PLAN: See orders for this visit as documented in the electronic medical record Symptomatic treatment discussed, instructed contagious for 24 hrs SHOP SUPERVISOR documented in this encounter Plan of Treatment Not on file documented as of this encounter Procedures Procedure Name Priority Date/Time Associated Diagnosis Comments STREP A SCREEN - POINT OF CARE (AMB) Routine 06/02/2009 10:17 AM SIGN SHOP SUPERVISOR Streptococcal Sore Throat documented in this encounter Results * (ABNORMAL) STREP A SCREEN - POINT OF CARE (AMB) (06/02/2009 10:17 AM SIGN SHOP SUPERVISOR) Strep A Rapid POCT positive NEGATIVE - POSITIVE Strep A Internal Control NEGATIVE - POSITIVE ENTIRE THROAT (SURFACE REGION OF NECK) / Unknown Vernell Espinoza MD LAB - POINT OF CARE ORDERABLES documented in this encounter Visit Diagnoses Diagnosis Streptococcal sore throat- Primary documented in this encounter Care Teams Child Protective Investigator Relationship Specialty Start Date End Date Vernell Espinoza MD PCP - Pediatrics 02/10/09 documented as of this encounter
--- OUTSIDE RECORDS SUMMARY | 2024-04-04 08:34 | XMS_ITS | Encounter Summary ---
Author Organization [facility] Address [address] [place] [address] Care Team Providers Care Seamark Advanced Operator Maintainer Name Role Phone Vernell Espinoza MD Unavailable Reason for Visit * Reason Comments Swelling Gland Encounter Details Date Type Department Care Team (Late st Contact Info) Description 04/16/2009 10:20 AM BALANCE BRIDGE ASSEMBLER Office Visit [facility] - Pediatrics [address] [place] [phone] Vernell Espinoza MD [address] [place] [address] Acute Tonsillitis (Primary Dx) Social [...] Pressure - - Pulse - - Temperature 37.9 ??C (100.2 ??F) 04/16/2009 10:55 AM BALANCE BRIDGE ASSEMBLER Respiratory Rate - - Oxygen Saturation - - Inhaled Oxygen Concentration - - Weight 22.1 kg (48 lb 12.8 oz) 04/16/19 10 10:55 AM BALANCE BRIDGE ASSEMBLER Height 121.9 cm (4') 04/16/2009 10:55 AM BALANCE BRIDGE ASSEMBLER Body Mass Index 14.89 04/16/2009 10:55 AM BALANCE BRIDGE ASSEMBLER Body Mass Index Percentile 39.75% 04/16 10:55 AM BALANCE BRIDGE ASSEMBLER Growth Chart: [facility] (Girls, 2- 20 Years) documented in this encounter Progress Notes * Vernell Espinoza MD - 04/16/2009 11:01 AM CST SUBJECTIVE: Aviva Alvarez is a 4 y.o. female brought in today by her mother who was here on . & this week with swollen glands and fever. She has had neck pain and swollen lymph node x 1 wk and fatigue. Started on Amoxil and was changed to Clindamycin on visit due to no improvement ofher condition. She will not take the Clindimycin due to 'tastes bad .Fever started 4 days ago Was at ER ([facility]) last evening due to fever of 104 all day yesterday. Denies sore throat. ER states mono rapid test was negative but feel she may have mono, her cbc at [facility] was 19.9 wbc and78 neutrophils.Today her fever was 100.2, to mom she seems better than before. She is here today for a follow-up visit. 4 days ago did have a vomit 5x, but it was a small amt and mostly mucousy. OBJECTIVE: Temp (Src) 100.2 ??F (Oral) Wt 22.136 kg (48 lb 12.8 oz) General appearance: alert, tired looking but in no distress. Ears: bilateral TM's and external ear canals normal Nose: normal and patent, no erythema, discharge or polyps Oropharynx: 3+ tonsils with white and nayak exudate noted and mucous membranes moist, pharynx normalwithout lesions Neck: R anterior cervical lymphadenopathy (~3 cm), L cervical nodes shoddy Lungs: clear to auscultation, no wheezes, rales or rhonchi, symmetric air entry Heart - regular rate and rhythm, normal S1 and S2, no murmurs Abdomen:NT, ND, normal BS's, no HSM Skin:Skin color, texture, turgor normal. No rashes or lesions ASSESSMENT: Tonsillitis( r/o mononucleosis) PLAN: See orders for this visit as documented in the electronic medical record Symptomatic therapy suggested: push fluids, rest and return office visit prn if symptoms persist orworsen. F/u mono screen from [facility]. NCE BRIDGE ASSEMBLER documented in this encounter Plan of Treatment Not on file documented as of this encounter Visit Diagnoses Diagnosis Acute tonsillitis- Primary documented in this encounter Care Teams Seamark Advanced Operator Maintainer Relationship Specialty Start Date End Date Vernell Espinoza MD PCP - Pediatrics 02/10/09 documented as of this encounter
--- OUTSIDE RECORDS SUMMARY | 2024-04-04 08:34 | XMS_ITS | Encounter Summary ---
Author Organization [facility] Address [address] [facility] [place] [address] Care Team Providers Care Diesel Tractor Operator Name Role Phone Vernell Espinoza MD Unavailable Vernell Espinoza MD Primary Care Provider [phone] Reason for Visit * Reason Comments Strabismus F/U Accom ET, High H yperopia. Yearly exam, was rescheduled two times. Seems to see well with Rx. Encounter Details Date Type Department Care Team (Latest Contact Info) Description 05/15/2010 3:30 PM SPRAY MIXER Hospital Encounter [facility] - Ophthalmology [address] [place] [address] Discharge Disposition: Home or Self Care Social History Tobacco Use Types Packs/Day Years Used Date Smoking Tobacco: Never Assessed Sex and Gender Information Value Date Recorded Sex Assigned at Not on file Gender Identity Not on file Sexual Orientation Not on file documented as of this encounter Progress Notes * Anita Bell CO - 05/15/2010 4:31 PM CST Aviva Alvarez is a 5 y.o. female who is being seen at the request of Dr. Espinoza for Chief Complaint Patient presents with ??? Strabismus F/U Accom ET, High Hyperopia. Yearly exam, was rescheduled two times. Seems to see well with Rx. Aviva is accompanied by mother and grandmother who provided the history. Meds: No current outpatient prescriptions on file prior to encounter. Allergies: has no known allergies. EXAM: Base Ophthalmology Exam Visual Acuity Right Left Dist cc 20/30-2 20/20-1 Near cc 20/20 20/20 Method: Snellen - Linear Wearing Rx Sphere Cylinder [place] Right +3.75 +0.75 127 Left +3.75 +0.50 50 Stereo Fly: + Animals: 3/3 Circles: 2/9 Pupils Pupils Right PERRL Left PERRL Extraocular Movement Right Left 0 -- -1 -1 -- 0 0 0 0 0 0 -- -1 -1 -- 0 Main Ophthalmology Exam External Exam Right Left External Normal Normal Slit Lamp Exam Right Left Lids/Lashes Normal Normal Conjunctiva/Sclera White and quiet White and quiet Cornea Clear Clear Iris Round and reactive Round and reactive Strabismus Exam Method: apct Correction: cc Distance Near Near +3.00DS Near Bifocals RET 1-2 RET' 1-2 0 - - -1 -1 - - 0 R Tilt 0 0 0 0 L Tilt 0 - - -1 -1 - - 0 DVD: DVD: Nystagmus NPC: Good, 3 cm Dist Near None Fusional Convergence: AHP: None Fusional Divergence: Stereo Fly: + Animals: 3/3 Circles: 2/9 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 RECOMMENDATION: CR/DFE ?PTO 1-2 hours a day OS Y MIXER documented in this encounter Miscellaneous Notes * Miscellaneous Scans - Document, Scanned - 06/07/2010 8:44 PM SPRAY MIXER documented in this encounter Plan of Treatment Not on file documented as of this encounter Visit Diagnoses Diagnosis 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
--- OUTSIDE RECORDS SUMMARY | 2024-04-04 08:34 | XMS_ITS | Encounter Summary ---
Author Organization [facility] Address [address] [facility] [place] [address] Care Team Providers Care Organ Tuner Electronic Name Role Phone Vernell Espinoza MD Unavailable Vernell Espinoza MD Primary Care Provider [phone] Reason for Visit * Reason Comments Fever X 4 days Cough coughs a lot Sore Throat hx of strep Vomiting last vomiting on Sat day Encounter Details Date Type Department Care Team (Late st Contact Info) Description 03/01/2011 9:45 AM UNDERWEAR WELTER Office Visit [facility] - Pediatrics [address] [place] [phone] Drew Cartwright MD [address] [place] [phone] Fever presenting with conditions classified elsewhere (Primary Dx); Cough; Sore throat Social History Tobacco Use Types Packs/Day Years Used Date Smoking Tobacco: Never Assessed Sex and Gender Information Value Date Recorded Sex Assigned at Not on file Gender Identity Not on file Sexual Orientation Not on file documented as of this encounter Last Filed Vital Signs Vital Sign Reading Time Taken Comments Blood Pressure - - Pulse - - Temperature 37.9 ??C (100.2 ??F) 03/01/2011 9:[address] Respiratory Rate - - Oxygen Saturation - - Inhaled Oxygen Concentration - - Weight 31.2 kg (68 lb 12.8 oz) 03/01/2011 9:49 A M UNDERWEAR WELTER Height - - Body Mass Index - - documented in this encounter Progress Notes * Drew Cartwright MD - 03/02/2011 10:28 AM CSTAddended by: DREW CARTWRIGHT on: 03/02/2011 10:28 AM Modules accepted: Orders RWEAR WELTER * Drew Cartwright MD - 03/02/2011 10:25 AM CST Spoke with mom at work. Radiology read of CXR shows questionable focal infiltrate in left lower lung . Aviva is still having fever up to 101+, has a really bad cough but acting like she's feeling better. Since still having fever will tx as pneumonia. Call in to shop n [place]ibell in [place] RWEAR WELTER * Drew Cartwright MD - 03/01/2011 10:00 AM CST Aviva Alvarez. 6 y.o., female, here for evaluation of fever and sore throat. Symptoms started 4 days ago. Fever: Yes, Tmax 102+ Runny Nose: No, Congestion: Yes Cough: Yes, wet. Tries to cough stuff up but nothing comes. Coughing a lot Headache: Yes Abd Pain: No Rash: No Sleep: good Appetite: decreased Fluids: good Sick contacts with Strep: No Medications: fever child protection specialist PE: Temp(Src) 100.2 ??F (Oral) Wt 68 lb 12.8 oz (31.207 kg) Alert NAD SHEENT: Skin: no observable rash Ears: Left: Normal Right: Normal Throat:injected, tongue coated Tonsils: red,swollen, no exudates Neck: supple, large ant L.N. bilateral Heart: Normal PMI. regular rate and rhythm, normal S1, S2, no murmurs or gallops. Lungs: Clear to auscultation and Normal breath sounds bilaterally Rapid Strep: negative Impression: 1. Cough 2. Fever 3. Sore throat Plan: Will send for CXR to R/O Pna Throat culture sent Fever control and encourage fluids. Follow up prn. With results: Mom's cell [phone] Step dad's cell [phone] Spoke with mom. No radiologist read, but I looked at xray myself and looks viral in nature. (PHI) Will call tomorrow with official read. RWEAR WELTER documented in this encounter Plan of Treatment Scheduled Orders Name Type Priority Associated Diagnoses Orde r Schedule CULTURE ROUTINE Microbiology Routine Fever presenting with conditions classified elsewhere Sore throat Ordered: 03/01/2011 documented as of this encounter Procedures Procedure Name Priority Date/Time Associated Diagnosis Comments STREP A SCREEN - POINT OF CARE (AMB) Routine 03/01/2011 10:01 AM UNDERWEAR WELTER Fever presenting with conditions classified elsewhere Sore throat documented in this encounter Results * STREP A SCREEN - POINT OF CARE (AMB) (03/01/2011 10:01 AM UNDERWEAR WELTER) Strep A Rapid POCT neg NEGATIVE - POSITIVE Strep A Internal Control NEGATIVE - POSITIVE Throat swab (specimen) ENTIRE THROAT (SURFACE REGION OF NECK) / Unknown 03/01/2011 10:01 AM UNDERWEAR WELTER Drew Cartwright MD LAB - POINT OF CARE ORDERABLES documented in this encounter Visit Diagnoses Diagnosis Fever presenting with conditions classified elsewhere- Primary Cough Sore throat Acute pharyngitis documented in this encounter Care Teams Organ Tuner Electronic Relationship Specialty Start Date End Date Vernell Espinoza MD PCP - Pediatrics 02/10/09 Vernell Espinoza MD [address] [place] [id number] PCP - General 07/04/09 09/14/18 documented as of this encounter
--- OUTSIDE RECORDS SUMMARY | 2024-04-04 08:34 | XMS_ITS | Encounter Summary ---
Author Organization [facility] Address [address] [facility] [place] [address] Care Team Providers Care Senior Electrical Project Manager Name Role Phone Vernell Espinoza MD Unavailable Vernell Espinoza MD Primary Care Provider [phone] Reason for Visit * Reason Onset Date Comments Question 03/23/2011 Encounter Details Date Type Department Care Team (Late st Contact Info) Description 03/23/2011 Telephone [facility] - Pediatrics [address] [place] [address] [place] [phone] Rebecca Jean MD [address] [place] [phone] Question Social History Tobacco Use Types Packs/Day Years Used Date Smoking Tobacco: Never Assessed Sex and Gender Information Value Date Recorded Sex Assigned at Not on file Gender Identity Not on file Sexual Orientation Not on file documented as of this encounter Miscellaneous Notes * Telephone Encounter - Sheyla Solomon RN - 03/23/2011 3:24 PM CST Aviva Alvarez is a 6 y.o. female, whose mother states she is running a low grad temp of 99.9 andfeels nauseated again. States she felt this way 1 week ago. Encouraged mother to observe for fever and to start BRAT diet. Discussed fluid hydration and to not eat high fat/spicey foods until feelingbetter. Mother verbalized understanding. T METAL ERECTOR * Telephone Encounter - Fiorella Lerner MA - 03/23/2011 11:39 AM CST Mom is concerned that Aviva is having low grade fever. T METAL ERECTOR documented in this encounter Plan of Treatment Not on file documented as of this encounter Visit Diagnoses Not on filedocumented in this encounter Care Teams Senior Electrical Project Manager Relationship Specialty Start Date End Date Vernell Espinoza MD PCP - Pediatrics 02/10/09 Vernell Espinoza MD [address] [place] [address] PCP - General 07/04/09 09/14/18 documented as of this encounter
--- OUTSIDE RECORDS SUMMARY | 2024-04-04 08:34 | XMS_ITS | Encounter Summary ---
Author Organization [facility] Address [address] [facility] [place] [address] Care Team Providers Care Utility Lineman Name Role Phone Octavio Simeon MD Unavailable Octavio Simeon MD Primary Care Provider [phone] Reason for Visit * Reason Comments Sore Throat c/o sore throat, fev er ^102 and headache x 1 day. Encounter Details Date Type Department Care Team (Late st Contact Info) Description 01/05/2013 1:30 PM CDT Office Visit [facility] - Pediatrics [address] [place] [phone] Octavio Simeon MD [address] [place] [address] Acute pharyngitis (Primary Dx); Fever presenting with conditions classified elsewhere Social History Tobacco Use Types Packs/Day Years Used Date Smoking Tobacco: Never Assessed Sex and Gender Information Value Date Recorded Sex Assigned at Not on file Gender Identity Not on file Sexual Orientation Not on file documented as of this encounter Last Filed Vital Signs Vital Sign Reading Time Taken Comments Blood Pressure - - Pulse - - Temperature 39.1 ??C (102.4 ??F) 01/05/2013 1:35 PM C DT Respiratory Rate - - Oxygen Saturation - - Inhaled Oxygen Concentration - - Weight 40.6 kg (89 lb 9.6 oz) 01/05/2013 1:35 PM CDT Height - - Body Mass Index - - documented in this encounter Patient Instructions * Patient Instructions* Octavio Simeon MD - 01/05/2013 2:04 PM CDT Aviva Alvarez most likely has viral sore [...] or Advil containing product at a time. documented in this encounter Progress Notes * Salome Ambrocio RN - 01/08/2013 10:52 AM CDTQuick Note: Mom informed. Verbalized understanding and willingness to comply. * Octavio Simeon MD - 01/08/2013 10:19 AM CDTQuick Note: Please call the parent and let him/her know the results show strep, I called in oral antibiotic forher. * Octavio Simeon MD - 01/05/2013 1:50 PM CDT SUBJECTIVE: Aviva Alvarez is a 7 y.o.brought by mother who complains of sore throat for 1 day(s). Fever: Yes - 100.1 at 0650 today Headache:Yes - bifrontal; dull/achy; no neck pain, vision changes, photo/phonophobia Stomach ache:No - no emesis, change in bowels URI symptoms: Yes - dry cough; denies rhinorrhea, congestion, ear/jaw pain Very fatigued OBJECTIVE: Temp 102.4 ??F (Temporal Artery) Wt 89 lb 9.6 oz General appearance: ill-appearing. Ears: bilateral TM's and external ear canals normal Oropharynx: erythematous, moist, no exudates, throat culture obtained Neck: shoddy adenopathy noted anterior cervical Lungs: clear to auscultation, no wheezes, rales or rhonchi, symmetric air entry Heart - regular rate and rhythm, normal S1 and S2, no murmurs No meningeal signs, awake and alert, no focal deficit ASSESSMENT: Pharyngitis and fever- RS negative PLAN: Rapid strep negative in office Strep culture sent; will call with results. Symptomatic treatment discussed - warm salt water gargles, throat lozenges, tylenol for pain/fever as needed, rest, fluids. Return if symptoms worsen or persist. documented in this encounter Miscellaneous Notes * Addendum Note - Octavio Simeon MD - 01/08/2013 10:19 AM CDTAddended by: OCTAVIO SIMEON on: 01/08/2013 10:19 AM Modules accepted: Orders documented in this encounter Plan of Treatment Not on file documented as of this encounter Procedures Procedure Name Priority Date/Time Associated Diagnosis Comments STREP A SCREEN - POINT OF CARE (AMB) Routine 01/05/2013 2:07 PM CDT Acute pharyngitis CULTURE STREP GROUP A Routine 01/05/2013 2:05 PM CDT Acute pharyngitis documented in this encounter Results * STREP A SCREEN - POINT OF CARE (AMB) (01/05/2013 2:07 PM CDT) Strep A Rapid POCT Negative Negative Strep A Internal Control NEGATIVE - POSITIVE Throat swab (specimen) ENTIRE THROAT (SURFACE REGION OF NECK) / Unknown 01/05/2013 2:07 PM CDT Octavio Simeon MD LAB - POINT OF CARE ORDERABLES * (ABNORMAL) CULTURE STREP GROUP A (01/05/2013 2:05 PM CDT) Beta-Strep Culture, Group A Only Positive( A) [facility] ACCOUNT BILL Comment: Penicillin and ampicillin are drugs of choice [...] THROAT (SURFACE REGION OF NECK) / Unknown 01/05/2013 2:05 PM CDT 01/05/2013 9:11 PM CDT Narrative Resulting Agency Comment [facility] [address] ??[facility] [id number] Octavio Simeon MD LAB - MICROBIOLOGY O RDERABLES [facility] ACCOUNT BILL documented in this encounter Visit Diagnoses Diagnosis Acute pharyngitis- Primary Fever presenting with conditions classified elsewhere documented in this encounter Care Teams Utility Lineman Relationship Specialty Start Date End Date Octavio Simeon MD PCP - Pediatrics 02/10/09 Octavio Simeon MD [address] [facility] [place] [phone] PCP - General 07/04/09 09/14/18 documented as of this encounter
--- OUTSIDE RECORDS SUMMARY | 2024-04-04 08:34 | XMS_ITS | Encounter Summary ---
Author Organization [facility] Address [address] [facility] [place] [address] Care Team Providers Care Stereo Equipment Installer Name Role Phone Vernell Espinoza MD Unavailable Vernell Espinoza MD Primary Care Provider [phone] Reason for Visit * Reason Comments Recheck Encounter Details Date Type Department Care Team (Latest Contact Info) Description 08/08/2009 3:30 PM CDT Clinical Support [facility] - Pediatrics [address] [place] [phone] Acute Pharyngitis Social History Tobacco Use Types Packs/Day Years Used Date Smoking Tobacco: Never Assessed Sex and Gender Information Value Date Recorded Sex Assigned at Not on file Gender Identity Not on file Sexual Orientation Not on file documented as of this encounter Progress Notes * Salome Ambrocio RN - 08/11/2009 9:00 AM CDTQuick Note: Phone call placed to patient's home to report negative throat culture results. No answer. Message left reporting the result and to notify office for any further questions or concerns. * Rebecca Jean MD - 08/11/2009 8:55 AM CDTCorazon Note: Let family know that culture is negative documented in this encounter Plan of Treatment Not on file documented as of this encounter Procedures Procedure Name Priority Date/Time Associated Diagnosis Comments CULTURE AEROBIC+GRAM STAIN Routine 08/08/2009 4:23 PM CDT Acute Pharyngitis STREP A SCREEN - POINT OF CARE (AMB) Routine 08/08/2009 3:41 PM CDT Acute Pharyngitis documented in this encounter Results * CULTURE ROUTINE (08/08/2009 4:23 PM CDT) Aerobic Bacterial Culture Final report [facility] ACCOUNT BILL Result 1 [facility] ACCOUNT BILL Comment:Routine respiratory shady ENTIRE PHARYNX / Unknown 08/08/2009 4:23 PM CDT 08/08/2009 10:27 PM CDT Narrative Resulting Agency Comment [facility] [address] ??[facility] [phone] Rebecca Jean MD LAB - MICROBIOLOGY O RDERABLES [facility] ACCOUNT BILL * STREP A SCREEN - POINT OF CARE (AMB) (08/08/2009 3:41 PM CDT) Strep A Rapid POCT neg NEGATIVE - POSITIVE Strep A Internal Control NEGATIVE - POSITIVE ENTIRE THROAT (SURFACE REGION OF NECK) / Unknown Rebecca Jean MD LAB - POINT OF CARE ORDERABLES documented in this encounter Visit Diagnoses Diagnosis Acute pharyngitis- Primary documented in this encounter Care Teams Stereo Equipment Installer Relationship Specialty Start Date End Date Vernell Espinoza MD PCP - Pediatrics 02/10/09 Vernell Espinoza MD [address] [place], [place] [address] PCP - General 07/04/09 09/14/18 documented as of this encounter
--- OUTSIDE RECORDS SUMMARY | 2024-04-04 08:34 | XMS_ITS | Encounter Summary ---
Author Organization [facility] Address [address] [place] [address] Care Team Providers Care Repair Clerk Name Role Phone Vernell Espinoza MD Unavailable Vernell Espinoza MD Primary Care Provider [phone] Reason for Visit * Reason Onset Date Comments Fever 08/18/2009 low grade Encounter Details Date Type Department Care Team (Late st Contact Info) Description 08/19/2009 Telephone [facility] - Pediatrics [address] [place] [phone] Vernell Espinoza MD [facility] [address] [place] [phone] Fever (low grade) Social History Tobacco Use Types Packs/Day Years Used Date Smoking Tobacco: Never Assessed Sex and Gender Information Value Date Recorded Sex Assigned at Not on file Gender Identity Not on file Sexual Orientation Not on file documented as of this encounter Miscellaneous Notes * Telephone Encounter - Salome Ambrocio RN - 08/19/2009 4:[address] Espinoza aware. Agrees with advice given. * Telephone Encounter - Salome Ambrocio RN - 08/19/2009 3:30 PM CDT Mom says that pt has spots on tongue and complaining of neck hurting last noc. Had low grade fever last noc. No URI sx, no sore throat. Frustrated that pt keeps getting sick and is only a virus. Explained to Mom that majority of illnesses caused by viruses. Discussed viral vs bacterial illnesses with Mom, signs and sx of each, expected course and duration, and home care management. Spots on tongue may be taste buds. Instructed Mom to have pt touch chin to chest, to bring pt to office if unable to do this or too painful to do this. Mom wants to monitor pt for now and try home care management. Instructed Mom to notify office if sx worsen, change, last beyond expected course. Verbalized understanding and willingness to comply. documented in this encounter Plan of Treatment Not on file documented as of this encounter Visit Diagnoses Not on filedocumented in this encounter Care Teams Repair Clerk Relationship Specialty Start Date End Date Vernell Espinoza MD PCP - Pediatrics 02/10/09 Vernell Espinoza MD [address] [facility] [place] [phone] PCP - General 07/04/09 09/14/18 documented as of this encounter
--- OUTSIDE RECORDS SUMMARY | 2024-04-04 08:35 | XMS_ITS | Encounter Summary ---
Author Organization [facility] Address [address] [place] [address] Care Team Providers Care Plant Facilities Technician Name Role Phone Vernell Espinoza MD Unavailable Vernell Espinoza MD Primary Care Provider [phone] Encounter Details Date Type Department Care Team (Late st Contact Info) Description 07/13/2004 Orders Only [facility] - [address] [phone] ProviderKeron MD Social History Tobacco Use Types Packs/Day Years Used Date Smoking Tobacco: Never Assessed Sex and Gender Information Value Date Recorded Sex Assigned at Not on file Gender Identity Not on file Sexual Orientation Not on file documented as of this encounter Plan of Treatment Not on file documented as of this encounter Procedures Procedure Name Priority Date/Time Associated Diagnosis Comments GROSS + MICRO EXAM SARIAH 07/13/2004 8: 50 AM CDT documented in this encounter Results * GROSS + MICRO EXAM (07/13/2004 8:50 AM CDT) Result CASE NUMBER [id number] [facility] LAB PATH REPORT Comment: ORDERING PHYSICIAN ??LURDES WEN SPECIMEN TYPE ?Preauricular Pit CLINICAL HISTORY ? 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 ??Some of these tests rely on the use of analyte-specific reagents and are subject to specific labeling requirements by the FDA. ??Such tests were developed by the Histopathology Laboratory of [facility] or the Histology Laboratory of [facility] and have not been cleared or approved by the FDA. ??The FDA has determined that such clearance or approval is not necessary. ??These tests are used for clinical purposes and should not be regarded as investigational or for research. This case has been personally reviewed and interpreted by the attending (teaching) pathologist. Cable Inspector ? Pita Mckeon RESIDENT IN PATHOLOG Blanca Sood M.D. PATHOLOGIST ?Brittany Aragon M.D. ELECTRONICALLY ALE BRITTANY ARAGON MISCELLANEOUS SAMPLES / Unknown 07/13/2004 8:50 AM CDT 07/13/2004 10:17 AM CDT Historical Provider MD LAB - PATHOLOGY/C YTOLOGY ORDERABLES [facility] LAB PATH REPORT documented in this encounter Visit Diagnoses Not on filedocumented in this encounter Care Teams Plant Facilities Technician Relationship Specialty Start Date End Date Vernell Espinoza MD PCP - Pediatrics 02/10/09 Vernell Espinoza MD [address] [facility] [place] [address] PCP - General 07/04/09 09/14/18 documented as of this encounter
== END 2024-03-28 10:08 | disposition home or self-care (01) ==
PROVIDERS: Emergency Provider Nurse Practitioner Family
DX: J03.90 Acute tonsillitis, unspecified (principal)
CPT/HCPCS: 36416; 86308; 87081; 87880; 99213; G0463

== ENCOUNTER 2024-06-26 08:26 | Emergency (ER) | payer OTHER, SELFPAY ==
[2024-06-26 08:35] VITALS: BP 131/71; PULSE 93; RESP 16; TEMP 36.7; O2SAT 99
--- OUTSIDE RECORDS SUMMARY | 2024-06-26 08:39 | XMS_ITS | Clinical Summary ---
Author Organization [facility] Address [address] [place] [address] Care Team Providers Care Frame Assembler Name Role Phone Vernell Espinoza MD Unavailable Elpidio Zarate MD Primary Care Provider [phone] Source Comments [facility],non-owned Affiliates and Associated Physician Practices is amultiple site organization consisting of ambulatory clinics and hospital sitesin [place], [place], [place] and [place]. This disclosure is being madepursuant to the Care Everywhere program and may not contain all information available regarding this patient. Last updated 17.[facility] Allergies No known active allergies Medications * [...] PED/ADOL 2003,2003, HIB BOOSTER 04/28/2004,2003,2003 ,2003 INFLUENZA VACCINE 01/19/2005 MMR 03/03/2007,01/20/2004 PNEUMOCOCCAL CONJ, PEDS 01/20/2004,2003,,2003 [...] - - Pulse - - Temperature 37 C (98.6 F) 03/04/2013 10:01 AM MANAGER RESOURCE Respiratory Rate - - Oxygen Saturation - [...] - 3-dose series) 2018 CHLAMYDIA/GONORRHEA SCREENING 2019 MENINGOCOCCAL (Group B) VACCINE SHARED DECISION-MAKING (1 of 2 - Standard) 2019 HEPATITIS C SCREENING 01/13/2021 COVID-19 VACCINE ( season) 2023 INFLUENZA VACCINE (#1) 2023 01/19/2005 DEPRESSION SCREENING 04/01/2024 ZOSTER VACCINE (1 of 2) 2053 HEPATITIS B VACCINE Completed 2003, 2003, 2003 PNEUMOCOCCAL VACCINE Completed 01/20/2004, 2003, 2003, Additional history exists HIB VACCINE Completed 04/28/2004, 09/2003, 2003, Additional history exists MENINGOCOCCAL GROUPS A/C/Y/W VACCINE Aged Out No longer eligible based on patient's age to complete this topic Care Teams Frame Assembler Relationship Specialty Start Date End Date Vernell Espinoza MD PCP - Pediatrics 02/10/09 Elpidio Zarate MD [address] [place] [id number] PCP - General Family Medicine 09/15/18
--- OUTSIDE RECORDS SUMMARY | 2024-06-26 08:43 | XMS_ITS | Data Portability ---
Author Organization [facility] Address [address] [place] [address] Care Team Providers Care Contract Administration Specialist Name Role Phone ANNITA REGALADO Primary Care Provider Assessment Encounter Date Assessment Date Assessment LastModified by Organization Details LastModified Time 07/08/2020 07/08/2020 loloestrin samples given, normal wwe, Effectiveness, correct use, advantages/disad vantages, common side effects, serious complications, contra-indicatio ns/precautions and return to fertility were reviewed for the following: Combined oral contraceptive (pills/patch/rin g), Progesterone-onl y pills, f/u 3 month med check Not available 07/08/2020 15:33:51 10/07/2020 10/07/2020 switch to tamica, f/u one year if spotting doesn't resolve in next couple of weeks call Not available 10/07/2020 14:27:11 12/31/2022 12/31/2022 Annual gynecological exam performed. Patient will come back in a year unless there are new symptoms. [email or web address] Not available 12/31/2022 11:57:04 04/21/2024 04/21/2024 Annual gynecological exam performed. Patient will come back in a year unless there are new symptoms. [email or web address] Not available 04/16/2024 14:24:43 Plan of Treatment Reminders Order Date Submit Date Provider Last Modified By Organization Details Last Modified Time Details Appointments None recorded . Lab pap, IG + reflex HPV if ASC-U - if hpv positive run subtypin g 16, 18/45 2024 025 HUMBERTO [facility] (Lab), [address], [place], [address], 5 14:59:22 Referral None recorded . Procedures None recorded . Surgeries None recorded . Imaging None recorded . Medication Orders Nortrel (28) 1 mg-35 mcg tablet 2024 [email or web address] Adarsh Sood, [place], [address], 5 10:03:04 Bernice 3 mg-0.03 mg tablet [address] Adarsh Sood, [place], [address], 5 20:50:10 nystatin -triamci nolone 100,000 unit/gra m-0.1 % topical ointment 2021 [email or web address] Adarsh Sood, [place], [address], 3 11:59:25 drospire none 3 mg-ethin yl estradio l 0.03 mg tablet [email or web address] [place] [address] [place], [address], 5 20:50:10 Patient TargetsNo targets recorded. Patient InstructionsNo instructions recorded. Reason for Referral None Reported. Results Created Date Observation Date Name Description Value Unit Range Abnormal Flag Note LastModifiedBy Organization Detail LastModifiedTime 04/07/19 22 04/07/2021 VAGIN ITIS/ VAGIN OSIS, DNA PROBE rolando sp. detection, direct probe Negati ve negati ve Not Available [facility] (Lab) [address], [place], [address], 04/08/2021 16:18:59 04/07/19 22 04/07/2021 VAGIN ITIS/ VAGIN OSIS, DNA PROBE gardnerella vag. detection, direct probe Negati ve negati ve Not Available [facility] (Lab) [address] [place], [address], 04/08/2021 16:18:59 04/07/19 22 04/07/2021 VAGIN ITIS/ VAGIN OSIS, DNA PROBE trichomonas vag. detection, direct probe Negati ve negati ve Not Available [facility] (Lab) [address] [place], [address], 04/08/2021 16:18:59 04/21/1904/21/2024 IMAGE GUIDE D PAP, REFLE X HPV IF ASCUS ONLY image guided Pap, reflex HPV ASCUS only SEE RESULT S BELOW CASE REPOR T: Cytol ogy Gynec ologangelica avitia Repor t Case: [id number] Autho purvi g Provi pablo: Dermo dy, Anita , ANP, TRANSFORMATION CONSULTANT Colle cted: 04/21 0913 Order ing Locat ion: [place] [facility] Recei edgardo: 04/22 1137 First Scree n: Judith Guaman CT Speci men: Scree rajni Pap - Image d, Cervi x STATE MENT OF ADEQU ACY: Satis facto ry for evalu ation Trans forma tion zone compo nent prese nt ----- ----- ----- ----- ----- ----- ----- ----- ----- ----- ----- ----- ----- ----- ----- ----- ----- ---- FINAL DIAGN OSIS: Negat courtney for Intra epith elial Yee n or Shine mccloud (NIL) . Elect barney rod by Judith wright CT on 2024 at [address] ----- ----- ----- ----- ----- ----- ----- ----- ----- ----- ----- ----- ----- ----- ----- ----- ----- ---- COMME NT: This speci men was revie wed by a Cytot echno logis t and/o r Patho logis t (as indic ated in this repor t) after evalu ation using the Thinp rep Imagi ng Syste m. CLINI SADI INFOR MATIO N: Menst rual Statu s: LMP (if appli cable ): Clini sadi Histo ry/Pr eviou s Pap: Type of Neopl ilana (if appli cable ): Signi fican t Clini sadi Findi ngs: Other Histo ry: Hormo joceline (if appli cable ): PAP EDUCA CLARA L NOTE: The Pap Test is a scree rajni test with an inher ent false negat courtney rate. Liqui d-bas ed sampl ing may decre ase, but will not elimi lillian, false negat courtney resul ts. A negat courtney resul t does not precl ude the prese nce and/o r devel opmen t of disea se, since the prese nce of abnor mal cells in the sampl e depen ds on the locat ion of the lesio n and sampl ing techn ique. [place] nued regul ar scree rajni is the best metho d of cance r preve ntion . If repor ayad cytol ogic findi ng do not corre late with physi sadi and/o r histo rical findi ngs, furth er inves tigat ion is recom kathy d, as alie garcia nted. Not Available [facility] (Lab) [address], [place], [address], 04/27/2024 14:59:21 Result Notes None recorded. Procedures Surgical History Date Name Laterality Status Provider Name and Address Organization Details Recorded Time 5 procedure on ear completed Belgica Phillips [facility] 07/08/2020 15:23:37 Imaging Results None recorded. Procedure Notes None recorded. Medical Equipment None Reported. Allergies No known drug allergies Medications Name Sig Start Date Stop Date Status Note LastModified by Organization Details LastModified Time amoxicillin 500 mg capsule TAKE ONE CAPSULE BY MOUTH EVERY 8 HOURS 10/07 completed Not Available Not Available Not Available ofloxacin 0.3 % eye drops INSTILL ONE DROP INTO LEFT EYE FOUR TIMES DAILY FOR 5 DAYS 04/07 completed Not Available Not Available Not Available penicillin V potassium 500 mg tablet 10/07 completed Not Available Not Available Not Available nystatin-tr iamcinolone 100,000 unit/gram-0 .1 % topical ointment APPLY TO THE AFFECTED AREA(S) BY TOPICAL ROUTE 2 TIMES PER DAY 12/31 completed Not Available Not Available Not Available amoxicillin 875 mg tablet 04/21 completed Not Available Not Available Not Available Nortrel 1/35 (28) 1 mg-35 mcg tablet take 1 tablet daily 2024 active Not Available Not Available Not Avai lable nystatin-tr iamcinolone 100,000 unit/g-0.1 % topical cream APPLY TO THE AFFECTED AREA(S) BY TOPICAL ROUTE 2 TIMES PER DAY 12/31 completed Not Available Not Available Not Available methylpredn isolone 4 mg tablets in a dose pack 04/21 completed Not Available Not Available Not Available drospirenon e 3 mg-ethinyl estradiol 0.02 mg tablet 10/10 completed Not Available Not Available Not Available drospiren-e .estrad-l.m efol 3 mg-0.02 mg-0.451 mg(24)/0.45 1 mg(4)tablet TAKE 1 TABLET EVERY DAY BY ORAL ROUTE. 04/07 completed Not Available Not Available Not Available Lo Loestrin Fe 1 mg-10 mcg (24)/10 mcg (2) tablet TAKE 1 TABLET BY MOUTH EVERY DAY 10/10 completed Not Available Not Available Not Available Bernice 3 mg-0.03 mg tablet TAKE 1 TABLET DAILY 06/10 completed Not Available Not Available Not Available ID NOW COVID-19 Test Kit TEST DIRECTED 12/31 completed Not Available Not Available Not Available Vitals Date Recorded Body height Body mass index (BMI) Percentile per age and sex Body mass index (BMI) Body weight Systolic blood pressure Diastolic blood pressure Provider Name and Address Organization Details Last Updated DateTime 1 162.56 cm 50 % 21.1 kg/m2 12344.8 6 g 113 mm[Hg] 74 mm[Hg] Belgica Phillips [facility] 1 15:16:04 Date Recorded Body height Body mass index (BMI) Body mass index (BMI) Percentile per age and sex Body weight Systolic blood pressure Diastolic blood pressure Provider Name and Address Organization Details Last Updated DateTime 1 162.56 cm 22 kg/m2 60 % 47555.8 2 g 113 mm[Hg] 72 mm[Hg] Belgica Phillips [facility] 1 14:09:39 Date Recorded Body height Body mass index (BMI) Body mass index (BMI) Percentile per age and sex Body weight Systolic blood pressure Diastolic blood pressure Provider Name and Address Organization Details Last Updated DateTime 2 162.56 cm 24.4 kg/m2 78 % 15776.1 2 g 122 mm[Hg] 84 mm[Hg] Belgica Phillips [facility] 2 12:28:16 Date Recorded Body height Body mass index (BMI) Body mass index (BMI) Percentile per age and sex Body weight Systolic blood pressure Diastolic blood pressure Provider Name and Address Organization Details Last Updated DateTime 3 162.56 cm 21.8 kg/m2 51 % 31180.2 3 g 118 mm[Hg] 70 mm[Hg] Alba walden [facility] 3 12:07:17 Date Recorded Body height Body mass index (BMI) Body weight Systolic blood pressure Diastolic blood pressure Provider Name and Address Organization Details Last Updated DateTime 04/21/2024 162.56 cm 23.8 kg/m2 03754.9 g 121 mm[Hg] 80 mm[Hg] Ginger Stahl [facility] 5 09:43:29 Social History Question Answer Notes LastModified by Organizat ion Details LastModified Time Tobacco Smoking Status Never Smoker Belgica Phillips [facility] 07/08/2020 15:22:34 What Is Your Level Of Alcohol Consumption? None [email or web address] Information not available 07/08/2020 If You Are , What Was Your Level Of Alcohol Consumption Prior To ? None Information not available 07/08/2020 Are You Blind Or Do You Have Difficulty Seeing? No Information n ot available 07/08/2020 What Is Your Level Of Caffeine Consumption? Moderate [email or web address] Information not available 07/08/2020 In The 14 Days Before Symptom Onset, Have You Had Close Contact With A Laboratory-confirm ed COVID-19 While That Case Was Ill? No [email or web address] Information n ot available 07/08/2020 In The 14 Days Before Symptom Onset, Have You Had Close Contact With A Person Who Is Under Investigation For COVID-19 While That Person Was Ill? No [email or web address] Information not available 07/08/2020 Have You Been To An Area Known To Be High Risk For COVID-19? No [email or web address] Information not available 07/08/2020 Are You Deaf Or Do You Have Serious Difficulty Hearing? No [email or web address] Information not available 07/08/2020 What Type Of Diet Are You Following? REGULAR [email or web address] Information n ot available 07/08/2020 Do You Use Your Seat Belt Or Car Seat Routinely? Yes [email or web address] Information not available 07/08/2020 Do You Have Smoke And Carbon Monoxide Detectors In Your Home? Yes [email or web address] Information not available 07/08/2020 Do You Feel Stressed (tense, Restless, Nervous, Or Anxious, Or Unable To Sleep At Night)? [id number] [email or web address] Information not available 07/08/2020 Do You Use Any Illicit Or Recreational Drugs? No [email or web address] Information not available 07/08/2020 Do You Use Sunscreen Routinely? Yes [email or web address] Information not available 07/08/2020 Has Tobacco Cessation Counseling Been Provided? No Information not available 07/08/2020 Do You Or Have You Ever Used Any Other Forms Of Tobacco Or Nicotine? No [email or web address] Information not available 07/08/2020 Sex: Unknown Functional Status Question Answer Note LastModified by Organizat ion Details LastModified Time Do you have difficulty walking or climbing stairs? No Information not available 12/31/2022 Are you able to walk? YESWOREST [email or web address] Information not available 07/08/2020 Are you able to care for yourself? Yes Information not available 12/31/2022 Do you have difficulty dressing or bathing? No Information not available 12/31/2022 What is your exercise level? Occasional [email or web address] Information not available 07/08/2020 Mental Status None recorded. Family History Relationship Description Onset Age of this Age Resolved Age Notes LastModified by Organization Details LastModified Time Maternal Grandmother Hypercholest erolemia [email or web address] Not available 07/08 15:19:27 Maternal Grandmother Hypertensive disorder [email or web address] Not available 07/08 15:19:56 Maternal Grandmother Cyst of ovary [email or web address] Not available 07/08 15:20:51 Maternal Grandfather Hypercholest erolemia [email or web address] Not available 07/08 15:19:27 Maternal Grandfather Hypertensive disorder [email or web address] Not available 07/08 15:19:56 Paternal Grandmother Hypertensive disorder [email or web address] Not available 07/08 15:19:56 Mother Cyst of ovary [email or web address] Not available 07/08 15:20:23 Medical History Condition Response Allergies (Food, seasonal, environmental ) N Other N Blood Transfusion N Drug/Latex Allergies/Reactions N Breast Cancer N Dermatologic Disorders N Lung Disease N Defects or Inherited Disease N Breast Problem N Gestational Diabetes N Hematologic disorders N Anesthesia Complications N History of STI N Deep Vein Thrombosis N Polycystic ovary syndrome N Anxiety Disorder N Autoimmune disease N Arthritis N Infertility N Polyps N Acid Reflux (GERD) N History of abnormal pap N Cancer N Stroke N Varicosities N Neurologic/Epilepsy N Endometriosis N High Cholesterol N Headaches N Fibromyalgia N Kidney Disease N Heart Problems N Kidney or Bladder Problems N Thyroid Problems N GI Problems N Eating Disorder N Anemia N Art (IVF or FET) N Psychiatric Illness N Ovarian Cancer N Diabetes N Pulmonary (TB, Asthma) N Hepatitis/Liver Disease N No Past Medical History N Eczema N Urinary Tract Infection N Abuse/Domestic Violence N Asthma N Trauma/Violence N Depression/ depression N Heart Disease N Pre-Eclampsia N Hypertension N Osteoporosis N Thrombophilias N Gynecological History Statement/Question Response Flow Moderate Date of LMP 03/30/2024 STIs/STDs N HPV Vaccine N Duration of Flow (days) 14 Current Control Method BCPs Are cycles usually normal N Sexually Active? Y Age of first menstrual cycle 11 Date of Last Pap Smear Sexual Problems? N Desired Control Method LMP Definite Obstetrics History GPAL:G 0 P 0 0 0 0 Type Value Living 0 Total 0 Past Encounters Encounter ID Performer Location Encounter Start Date Encounter Closed Date Diagnosis/Indication Diagnosis SNOMED-CT Code Diagnosis ICD10 Code Diagnosis Note [id number] Nunu Soler [facility] [address],[place] [address] 07/08/2020 14:56:39 07/08/2020 15:53:57 Gynecologic examination 57818170 Z01.419 Irregular periods 483604 07 N92.6 [id number] Nunu Soler [facility] [address] [place] [address] 10/07/2020 13:58:10 10/07/2020 14:33:03 Irregular periods 34117509 N92.6 [id number] Nunu Soler [facility] [address] [place] [address] 04/07/2021 12:14:24 04/07/2021 13:36:21 Vaginitis 52184263 N76.0 [id number] ANIBAL Chase [facility] [address] [place] [address] 12/31/2022 11:48:37 12/31/2022 12:10:15 Gynecologic examination 88521441 Z01.419 Encouraged adequate Calcium with Vitamin D daily . It is strongly advised to have an annual flu shot and up can obtain at most pharmacies . If you have not had a TDap shot in the last 10 years you should obtain one as well. Discussed with patient & provided with informatio n regarding Gardisil vaccine to prevent the 4 strains for HPV that cause cervical cancer. Encourage safe sexual practices, to use condoms and limit partners if not already in a monogamous relationsh ip. Do monthly self breast exams. BRCA testing is now available for patients with strong genetic history of female cancer. If interested contact the office. Engage in daily exercise of low impact aerobic exercise 45-60 minutes 4-5 times weekly. Avoid tobacco, illicit drugs, and alcohol. This lifestyle behavior pattern will lead to less health conditions and longer life span. If BMI greater than 25 dietary consult advised. Pap smear is not recommende d prior to the age of 21. If you have any concerns, pelvic, or vaginal problems we can discuss testing. Patient received above instructio ns, and questions have been answered. If you have any questions please call or respond to this email. Patient was made aware of the patient portal and may obtain a paper copy of today's plan if desired. WWEBC- OCP, happy with this method and would like to continuer/ b/a reviewed, denies any contraindi cationsref ills sent x 12 monthsprim rissa pap due at 19STI testing declinedUT D with PCPRTC in 1 year or sooner if needed Contracept ion care management 081719773 Z30.9 [id number] ANITA BLANKENSHIP NP [facility] [address] [address] 04/21/2024 09:35:29 04/21/2024 10:09:34 Gynecologic examination 60609249 Z01.419 Annual gynecologi sadi exam performed. Patient will come back in a year unless there are new symptoms. Suggest Calcium with Vitamin D if not eating in diet. Patient advised to get annual flu shot. Recommend yearly physicals and perform monthly breast exams. Genetic testing is available for patients with family history of cancer. Engage in safe sexual practices, use condoms. Encouraged to have daily exercise. Avoid tobacco and illicit drugs, moderation of alcohol. If BMI greater than 25 dietary consult advised. If you have any questions please call or email. Pap smear- pap w/ HPV collected STI testing - declined Contracept ion care management 206566650 Z30.9 Discussed switching to alternativ e BC pill (containin g 35 mcg estrogen) to help better regulate cycles. Risks/bene fits reviewed. Patient to start new OCP on the first day of next period. Use back-up method with a condom for one month after starting new OCP.Refill s sent x one year. Health Concerns Section Related Observation LastModified by Organization Detai ls LastModified Time None Recorded Concern Status LastModified by Organization Details LastModified Time None Recorded Advance Directives Directive None Recorded Payers Encounter Date Sequence Insurance Name Policy Number Policy Serrano Covered Member ID Serrano Member ID Guarantor Name 07/08/2020 1 [facility] [id number] Cyrus Geevin [id number] Gianfranco 10/07/2020 1 [facility] [id number] Cyrus Gianfranco [id number] Gianfranco 04/07/2021 1 [facility] [id number] Cyrus Gianfranco [id number] Gianfranco 12/31/2022 1 [facility] [id number] Cyrus Geevin [id number] Gianfranco 04/21/2024 1 [id number] Cyrus Gianfranco [id number] Gianfranco Notes Date Note Type Note Provider Name and Address Organization Details Recorded Time 07/08/2020 text/html Annual GYNReport ed bypatient.Menstrual cycle:Intervals less than 21 days;Missed most recent period;Irregular cycle intervals;Bleeding between periods Urinary symptoms:No hematuria; No incontinence Psychological symptoms:No depression; No anxiety; No PMDDNotes:thinking about becoming active has bf, reviewed condoms and sexual safety, pt and mom have discussed ocp, no migraine hx Nunu Soler [facility] [address], [place], [address], [facility] 07/08/2020 15:34:23 10/07/2020 text/html started loloestr in and has been spotting bleeding daily, would like to change Nunu Soler CNM [address], [place], [address], [facility] 10/07/2020 14:27:33 04/07/2021 text/html couple months ag o noticed discomfort with intercourse and occasionally with using tampons, hurts on the left side in a very specific area and also has noticed that area will bleed a little sometimes after intercourse unsure if injury Nunu Ruel Soler CNM [address], [place], [address], [facility] 04/07/2021 12:40:07 12/31/2022 text/html Annual GYNReport ed bypatient.Menstrual cycle:Normal menses Urinary symptoms:No hematuria; No incontinence Vulva:No genital lesion Vagina:Normal vaginal discharge Breast:No breast pain; No breast lump; No nipple discharge Current Contraception:Satisf ied with current contraception; Oral contraceptives; very happy with OCP. Denies hx of DVT/PE, HTN, Stroke/DE, cancer, liver disease, or migraine with aura Sexual complaints:No sexual complaints; No pain during intercourse; Normal libido Menopausal Symptoms:No menopausal symptoms; Normal vaginal lubrication Psychological symptoms:No depression; No anxiety; No PMDD Preventive measures:Encourage self breast examination; Encourage regular exercise; Encourage no tobacco use; Encourage regular mammograms starting age 40 ANIBAL Chase [address], [place], [address], [facility] 12/31/2022 12:09:25 04/21/2024 text/html Annual GYNReport ed bypatient.History:no gynecologic complaints Menstrual cycle:Bleeding lasts more than 7 days;Bleeding between periods Urinary symptoms:No hematuria; No incontinence Vulva:No genital lesion Vagina:Normal vaginal discharge Breast:No breast pain; No breast lump; No nipple discharge Current Contraception:Satisf ied with current contraception; Oral contraceptives Sexual complaints:No sexual complaints; No pain during intercourse; Normal libido Menopausal Symptoms:No menopausal symptoms; Normal vaginal lubrication Psychological symptoms:No depression; No anxiety; No PMDD Preventive measures:Encourage self breast examination; Encourage regular exercise; Encourage no tobacco use; Encourage regular mammograms starting age 40 Patient presents for annual well woman exam. Patient states that she does have longer periods (nearly 2 weeks) on current control pill and sometimes BTB, which is a reason she was previously switched to a different OCP. No other concerns. ANITA BLANKENSHIP NP [address], [place], [address], [facility] 04/21/2024 10:06:42 OBGyn Episode No OBEpisode recorded.
--- NOTE | 2024-06-26 08:47 | ED_ITS ---
HPI - URI/Sore Throat General Chief Complaint: Upper Respiratory Infection Stated Complaint: throat History of Present Illness HPI Narrative: 19-year-old female presented for complaint of left-sided throat pain worsening for 1 week. She states she has had a peritonsillar abscess in the past and this feels similar. Endorses difficulty talking and swallowing due to pain. Denies difficulty maintaining secretions, n/v/d/f/c. Pt has take a few left over amoxicillin at onset. Related Data Home Medications ?Medication ?Instructions ?Recorded ?Confirmed ?Last Taken ?Type norethindrone 1 mg-ethinyl tablet 06/26/24 Unknown History estradiol 35 mcg tablet (Dasetta) Allergies Allergy/AdvReac Type Severity Reaction Status Date / Time No Known Allergies Allergy Verified 06/26/24 08:39 Review of Systems Review of Systems: CONSTITUTIONAL: Denies body aches, fever, chills, or sweats. EYES: Denies visual changes, redness, or discharge. ENT: reports throat pain Denies rhinorrhea, congestion, or otalgia. CARDIOVASCULAR: Denies chest pain, palpitations, or edema. RESPIRATORY: Denies dyspnea. GASTROINTESTINAL: Denies abdominal pain, nausea, vomiting, or diarrhea. SKIN: Denies rash, itching, or wounds. MUSCULOSKELETAL: Denies back pain, joint pain, or myalgia. NEUROLOGIC: Denies headache PMFSH Past Medical History Medical History No active medical problems Family History Family History Grandparent Hypertension Social History Social History Smoking status: Never smoker Alcohol intake: never Gender identity (if verbalized by the patient): Female Exam Narrative: GENERAL: Ill-appearing, no acute distress. EYES: conjunctivae clear ENT: Mucous membranes moist. Hot potato voice is noted.Oropharynx severely erythematous with large amount of left sided soft palate and left tonsillar edema, without exudate. No drooling, no trismus, uvula shifting right due to swelling. No tripod positioning. TM pearly nayak with normal light reflex bilaterally; no tragal tenderness. NECK: Supple. left anterior cervical lymphadenopathy CHEST: Clear to auscultation, breath sounds equal. No respiratory distress, speaks in full sentences. HEART: Regular rate and rhythm. No murmur heard. SKIN: Warm, dry, no rash. NEURO: Alert and oriented x3. Course Course Emergency Course: Patient is aware of diagnosis, understands and agrees to treatment plan. Anticipatory guidance given. Patient agrees to follow-up as directed and is aware of reasons to seek care at the emergency department. Portions of this record may have been created with voice recognition software Level of Care: Express Care Visit Vital Signs Vital signs: Vital Signs Temperature 98.1 F 06/26/24 08:35 Pulse Rate 93 06/26/24 08:35 Respiratory Rate 16 06/26/24 08:35 Blood Pressure 131/71 06/26/24 08:35 Pulse Oximetry 99 06/26/24 08:35 Oxygen Delivery Room Air 06/26/24 08:35 Temperature 98.1 F 06/26/24 08:35 Pulse Rate 93 06/26/24 08:35 Respiratory Rate 16 06/26/24 08:35 Blood Pressure 131/71 06/26/24 08:35 Pulse Oximetry 99 06/26/24 08:35 Oxygen Delivery Room Air 06/26/24 08:35 MDM - URI/Sore Throat MDM Narrative Medical decision making narrative: discussed physical exam findings consistent with left peritonsillar abscess and advised ER transfer. Neg strep result reviewed with pt. Differential Diagnosis Differential diagnosis: Likely upper respiratory infection, viral infection, pharyngitis and other (peritonsillar abscess, gonorrhea, bacterial tracheitis, mono, angioedema, epiglottitis, parotitis) Discharge Plan Discharge Clinical Impression: Peritonsillar abscess Patient Disposition: Acute Care Hospital Condition: Stable Patient Language: Romanian Prescriptions: No Action Dasetta (28) 1-35 mg-mcg tablet Follow-up/Referrals: PHYSICIAN NOT ON STAFF,NONSTAFF [Primary Care Provider] - Time of Disposition: 09:02
[2024-06-26 08:50] LABS: EDSTREPNEGPOS1 Negative (Negative)
== END 2024-06-26 08:57 | disposition short-term general hospital (02) ==
PROVIDERS: Emergency Provider Nurse Practitioner Family
DX: J36 Peritonsillar abscess (principal)
CPT/HCPCS: 87081; 87880; 99212; G0463

== ENCOUNTER 2024-06-26 09:36 | Emergency (ER) | payer OTHER, SELFPAY ==
--- NOTE | ~2024-06-26 | CT_ITS ---
EXAMINATION: CT soft tissue neck w con DATE: 06/26/2024 12:09 INDICATION: Peritonsillar abscess. TECHNIQUE: Computed tomography (CT) of the neck was performed with 75 mL Omnipaque-350 intravenous co ntrast. Automated exposure control and iterative reconstruction technique were employed. The dose-olena gth product was 226.48 mGy-cm. COMPARISON: None FINDINGS: The left palatine tonsil is enlarged with 2.7 x 2.4 cm peritonsillar abscess. There is mild left submandibular lymphadenopathy. The cervical carotid arteries are normal. There is a mucous rete ntion cyst in right maxillary sinus. There is kyphosis of cervical spine. IMPRESSION: 1. 2.7 x 2.4 cm left peritonsillar abscess. 2. Mild left submandibular lymphadenopathy, likely reactive. Reviewed, dictated and finalized at location A.
[2024-06-26 09:55] VITALS: BP 119/69; PULSE 95; RESP 16; TEMP 36.6; O2SAT 96
--- OUTSIDE RECORDS SUMMARY | 2024-06-26 10:13 | XMS_ITS | Clinical Summary ---
Author Organization [facility] Address [address] [place] [address] Care Team Providers Care Tools Administrator Name Role Phone Vernell Espinoza MD Unavailable Elpidio Zarate MD Primary Care Provider [phone] Source Comments [facility],non-owned Affiliates and Associated Physician Practices is amultiple site organization consisting of ambulatory clinics and hospital sitesin [place], [place], [place] and [place]. This disclosure is being madepursuant to the Care Everywhere program and may not contain all information available regarding this patient. 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
--- NOTE | 2024-06-26 11:15 | ED_ITS ---
HPI - General Adult General Chief complaint: Unspecified Stated complaint: throat swollen, abscess? Time Seen by Provider: 06/26/24 11:14 Source: patient Mode of arrival: ambulatory Limitations: no limitations History of Present Illness HPI narrative: Patient is a 19-year-old female who presents the ED with report of sore throat/throat swelling. Patient reports she has been dealing with intermittent sore throat over the past couple of months. Had previously been on Augmentin and steroids and did improve with this. Began having increased pain in her throat over the next 1 week. Was seen at urgent care today and referred here for evaluation of possible peritonsillar abscess. Sore throat worse on left side. Reports painful swallowing, ache difficulty keeping down food and drink. Denies fevers. Denies vomiting. Was tested negative for strep throat today. Related Data Home Medications ?Medication ?Instructions ?Recorded ?Confirmed ?Last Taken ?Type norethindrone 1 mg-ethinyl tablet 06/26/24 Unknown History estradiol 35 mcg tablet (Dasetta) Allergies Allergy/AdvReac Type Severity Reaction Status Date / Time No Known Allergies Allergy Verified 06/26/24 11:26 Review of Systems 2 Review of Systems: All systems reviewed & are unremarkable except as noted in HPI. All systems reviewed & are unremarkable except as noted in HPI and below PMFSH Past Medical History Medical History No active medical problems Family History Family History Grandparent Hypertension Social History Social History Smoking status: Never smoker Alcohol intake: never Gender identity (if verbalized by the patient): Female Exam 2 Narrative: GENERAL: Well appearing, well-nourished, non-toxic, in no acute distress. HEAD: Normocephalic, atraumatic. ENT: Moderate posterior pharynx erythema with significant left-sided tonsillar hypertrophy, compared to right. Protrusion of left-sided soft palate with uvular deviation. No appreciable exudates. Slight muffled quality to voice. No trismus or stridor. RESPIRATORY: Airway patent, respirations nonlabored. Clear to auscultation bilaterally, no rales, rhonchi, wheezing. CARDIOVASCULAR: Regular rate and rhythm MUSCULOSKELETAL: Moves all extremities. No gross deformities. SKIN: Warm, dry, normal color. NEURO: A&O X3. Speech clear. PSYCHIATRIC: Appropriate mood and affect. Normal interaction. Course Vital Signs Vital signs: Vital Signs Temperature 36.6 C 06/26/24 09:55 Pulse Rate 95 06/26/24 09:55 Respiratory Rate 16 06/26/24 09:55 Blood Pressure 119/69 06/26/24 09:55 Pulse Oximetry 96 06/26/24 09:55 Oxygen Delivery Autopap 06/26/24 09:55 Temperature 36.6 C 06/26/24 09:55 Pulse Rate 84 06/26/24 14:23 Respiratory Rate 14 06/26/24 14:23 Blood Pressure 136/84 06/26/24 14:23 Pulse Oximetry 99 06/26/24 14:23 Oxygen Delivery Autopap 06/26/24 09:55 Procedures Abscess I/D oral: Date of Incision: 06/26/24 Time of Incision: 13:30 Side (if applicable): left (peritonsillar abscess) Sedation/analgesia: none Local Anesthetic: other anesthetic (cetacaine spray) Technique: needle aspiration Amount of fluid expressed (mL): 15 Irrigation: Yes Packing used?: none I&D Results: Pus and Blood Complications: other (none) Medical Decision Making MDM Narrative Medical decision making narrative: Patient presented to ED with concern for peritonsillar abscess. Vital signs are stable. Patient is afebrile here. CBC with white blood cell count of 14.0. Neutrophil predominance. No bandemia. BMP is unremarkable. Ripley screen negative. Strep testing at urgent care today was also negative. CT soft tissue neck obtained and showing 2.4 x 2.7 cm left peritonsillar abscess. No retropharyngeal abnormalities. Patient given Unasyn, Decadron, fluids. Feeling improved. Abscess drainage w/ needle aspiration was performed at bedside with Dr. Zhu. Patient tolerated procedure very well. Feeling significantly improved. I discussed case with Dr. Caputo, ENT, advised patient can follow-up in the office. Patient was monitored in the ED for approximately 1 hour after procedure and remained hemodynamically stable. Able to tolerate p.o. intake. Feel she is safe for discharge home at this time on steroids and antibiotics. Given very strict return precautions. Patient voiced understanding. She agrees with plan. Feels comfortable going home. Discharged in stable condition. Medical Records Medical records reviewed: Yes I reviewed the external patient's medical records. Vital Signs Vital Signs: Vital Signs Temperature 36.6 C 06/26/24 09:55 Pulse Rate 95 06/26/24 09:55 Respiratory Rate 16 06/26/24 09:55 Blood Pressure 119/69 06/26/24 09:55 Pulse Oximetry 96 06/26/24 09:55 Oxygen Delivery Autopap 06/26/24 09:55 Temperature 36.6 C 06/26/24 09:55 Pulse Rate 84 06/26/24 14:23 Respiratory Rate 14 06/26/24 14:23 Blood Pressure 136/84 06/26/24 14:23 Pulse Oximetry 99 06/26/24 14:23 Oxygen Delivery Autopap 06/26/24 09:55 Lab Data Lab results reviewed: Yes I reviewed the patient's lab results. 06/26/24 11:22 06/26/24 11:22 Labs: Lab Results 06/26/24 06/26/24 Range/Units 11:22 11:26 WBC 14.0 H (4.5-10.0) K/mm3 RBC 4.30 (4.2-5.4) M/mm3 Hgb 11.9 L (12.0-15.0) g/dL Hct 37.6 (37.0-47.0) % MCV 87.4 (80-100) fl MCH 27.7 (26-34) pg MCHC 31.6 L (32-36) g/dl RDW 14.9 H (11.5-14.5) % Plt Count 587 H (150-375) k/mm3 MPV 10.5 H (7.4-10.4) fl Immature Gran % (Auto) 0.3 (0-0.5) % Neut % (Auto) 80.0 H (45.5-73.1) % Lymph % (Auto) 12.6 L (18.3-44.2) % Ripley % (Auto) 6.7 (2.6-8.5) % Eos % (Auto) 0.1 (0-4.4) % Baso % (Auto) 0.3 (0.2-1.2) % Lymph # (Auto) 1.76 (0.9-3.2) K/mm3 Ripley # (Auto) 0.9 H (0.1-0.6) K/mm3 Eos # (Auto) 0.0 (0-0.3) K/mm3 Baso # (Auto) 0.0 (0.0-0.1) K/mm3 Abs Immat Gran (auto) 0.04 H (0.00-0.031) K/mm3 Absolute Neuts (auto) 11.2 H (1.3-6.7) K/mm3 Absolute Nucleated RBC 0.000 (0.0-0.012) K/mm3 Nucleated RBC % 0.0 (0.0-0.2) % Sodium 138 (137-145) mmol/L Potassium 4.3 (3.4-5.0) mmol/L Chloride 102 (98-107) mmol/L Carbon Dioxide 24 (22-30) mmol/L Anion Gap 12 (4-12) mmol/L BUN 9 (7-17) mg/dL Creatinine 0.64 L (0.7-1.0) mg/dL Estim Creat Clear Calc Not Reportable Estimated GFR > 60 (59 - ) Glucose 94 (65-110) mg/dL Calcium 9.5 (8.4-10.2) mg/dL POC Urine HCG, Qual Negative (Negative) Monoscreen Negative (Negative) Imaging Data Attestation: I personally reviewed and interpreted this imaging study as follows: Radiologist's impression: ITS Impressions Soft Tissue Neck CT 06/26/24 12:31 IMPRESSION: 1. 2.7 x 2.4 cm left peritonsillar abscess. 2. Mild left submandibular lymphadenopathy, likely reactive. Discharge Plan Discharge Clinical Impression: Peritonsillar abscess Patient Disposition: Home, Self-Care Condition: Stable Instructions: Antibiotic Form, Peritonsillar Abscess (ED) Additional Instructions: Take steroids and antibiotics as prescribed. It is important you finish both courses. Stay well hydrated. Continue Tylenol & ibuprofen as needed for discomfort and/or fevers. Follow-up with ENT in the office. Call office to make appointment. Return to the ED immediately if you experience worsening or severe symptoms, difficulty breathing or swallowing, unable to keep down food or drink, persistent fevers, or any other symptoms of concern. Patient Language: Setswana Prescriptions: New methylprednisolone [Medrol (Michael)] 4 mg tablets,dose pack See Rx Instructions PO .COMPLEX Qty: 21 0RF Rx Instructions: orally per package directions amoxicillin-pot clavulanate 875-125 mg tablet 1 tablet PO Q12H 10 Days Qty: 20 0RF No Action Dasgregorio (28) 1-35 mg-mcg tablet Follow-up/Referrals: Trey Caputo MD [Physician] - (ENT) PHYSICIAN NOT ON STAFF,NONSTAFF [Non-Staff] - Time of Disposition: 13:53
[2024-06-26 11:28] LABS: BEDSIDEPREGUCG Negative (Negative)
[2024-06-26 11:30] LABS: Basophils Percent Auto 0.3 % (0.2-1.2); Eosinophils Percent Auto 0.1 % (0-4.4); Hematocrit 37.6 % (37.0-47.0); Hemoglobin 11.9 g/dL (12.0-15.0); Immature Granulocyte Absolute 0.04 K/mm3 (0.00-0.031); Immature Granulocyte Percent A 0.3 % (0-0.5); Lymphocytes Absolute Auto 1.76 K/mm3 (0.9-3.2); Lymphocytes Percent Auto 12.6 % (18.3-44.2); Mean Corpuscular HGB Conc 31.6 g/dl (32-36); Mean Corpuscular Hemoglobin 27.7 pg (26-34); Mean Corpuscular Volume 87.4 fl (80-100); Mean Platelet Volume 10.5 fl (7.4-10.4); Monocytes Absolute Auto 0.9 K/mm3 (0.1-0.6); Monocytes Percent Auto 6.7 % (2.6-8.5); Neutrophils Absolute Auto 11.2 K/mm3 (1.3-6.7); Platelet Count Result 587 k/mm3 (150-375); Red Cell Distribution Width 14.9 % (11.5-14.5)
[2024-06-26 11:52] LABS: Anion Gap 12 mmol/L (4-12); Blood Urea Nitrogen 9 mg/dL (7-17); Calcium 9.5 mg/dL (8.4-10.2); Carbon Dioxide 24 mmol/L (22-30); Chloride 102 mmol/L (98-107); Estimated Glomerular Filt Rate > 60; Glucose 94 mg/dL (65-110); Potassium 4.3 mmol/L (3.4-5.0); Sodium 138 mmol/L (137-145)
[2024-06-26 12:07] LABS: Monoscreen Negative (Negative); Negative Monotest Control Negative (Negative); Positive Monotest Control Positive (Positive)
--- OUTSIDE RECORDS SUMMARY | 2024-06-26 12:27 | XMS_ITS | Clinical Summary ---
Author Organization [facility] Address [address] [place] [address] Care Team Providers Care Computer Technical Support Specialist Name Role Phone Vernell Espinoza MD Unavailable Elpidio Zarate MD Primary Care Provider [phone]- [phone] Source Comments [facility],non-owned Affiliates and Associated Physician Practices is amultiple site organization consisting of ambulatory clinics and hospital sitesin [place], [place], [place] and [place]. This disclosure is being madepursuant to the Care Everywhere program and may not contain all information available regarding this patient. 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
[2024-06-26] MEDS: AMPICILLIN SULB 3 GM/NS 100 ML 3 GM/100 ML VIAL IVPB (12:35)
[2024-06-26] MEDS: KETOROLAC 30 MG/ML VIAL (*BKC) IV PUSH (12:35)
[2024-06-26] MEDS: dexAMETHasone SOD PHOS INJ 10 MG/ML 1 ML VIAL IV PUSH (12:37)
[2024-06-26] MEDS: LIDOCAINE 2% VISC SOLN 15 ML UDC PO (12:37)
[2024-06-26] MEDS: SODIUM CHLORIDE 0.9% IV 1,000 ML 999 ML IV CONT (12:56)
[2024-06-26 12:58] VITALS: BP 128/74; PULSE 88; RESP 19; O2SAT 100
[2024-06-26] MEDS: BENZOCAINE/TETRACAINE SPRAY (*SP) 56 ML AEROSOL 1 SPRAY MUCOUS MEM (13:47)
[2024-06-26 14:23] VITALS: BP 136/84; PULSE 84; RESP 14; O2SAT 99
== END 2024-06-26 14:23 | disposition home or self-care (01) ==
PROVIDERS: Emergency Provider Physician Assistant
DX: J36 Peritonsillar abscess (principal)
CPT/HCPCS: 36415; 42700; 70491; 80048; 81025; 85025; 86308; 96361; 96365; 96375; 99284; A9270; J0295; J1100; J1885; J7030; Q9967